=== PATIENT | female | born 1980 | race Caucasian/White ===

== ENCOUNTER → 2017-05-01 | Outpatient (REF) | payer BC, OTHER ==
[2017-05-01 21:07] LABS: APPEARANCE, URINE CLOUDY (CLEAR); BACTERIA, URINE AUTO NEGATIVE (NEGATIVE); BILIRUBIN, URINE AUTO NEGATIVE (NEGATIVE); BLOOD, URINE BLOOD 2+ (NEGATIVE); COLOR, URINE YELLOW (YELLOW); GLUCOSE, URINE (UA) AUTO NEGATIVE (NEGATIVE); KETONE, URINE AUTO NEGATIVE (NEGATIVE); LEUKOCYTE ESTERASE, URINE AUTO 3+ (NEGATIVE); MUCUS, URINE SMALL (NEGATIVE); NITRITE, URINE AUTO NEGATIVE (NEGATIVE); PROTEIN, URINE AUTO NEGATIVE (NEGATIVE); RBC, URINE AUTO 5 /HPF (0-3); SPECIFIC GRAVITY URINE AUTO 1.005 (1.002-1.035); SQUAMOUS EPITHELIAL CELL UR AU 6 /HPF (0-6); TRANSITIONAL EPITHELIAL AUTO <1 /HPF; UROBILINOGEN, URINE AUTO 0.2 mg/dL (0.0-2.0); WBC, URINE AUTO 163 /HPF (0-3)
== END ==
LOC: M LAB REF 20:14
DX: N39.0 Urinary tract infection, site not specified (principal)

== ENCOUNTER 2017-09-19 03:38 | Inpatient (IN) | payer OTHER, BC ==
[2017-09-19] MEDS ORDERED: MAALOX 30 ML SUSP *UDC PO (04:15)
[2017-09-19] MEDS ORDERED: MOM 30ML SUSPENSION UDC PO (04:15)
[2017-09-19 05:37] LABS: SALICYLATE LEVEL < 1.7 MG/DL (5.0-30.0)
[2017-09-19 05:44] LABS: ACETAMINOPHEN LEVEL < 2.0 UG/ML (10.0-30.0)
[2017-09-19] MEDS: PALIPERIDONE 6 MG ER TAB (INVEGA) PO ×2 (09:00→20:05)
[2017-09-19] MEDS: ACETAMINOPHEN TAB 650MG DOSE (2X325MG) PO (18:13)
[2017-09-19] MEDS: QUEtiapine FUMARATE 25 MG TAB PO (20:05)
[2017-09-19] MEDS: lamoTRIgine 25 MG TAB PO (20:05)
[2017-09-19] MEDS: traZODone 50 MG TAB PO (20:05)
[2017-09-19] MEDS: clonazePAM 1 MG TAB PO (20:48)
[2017-09-20] MEDS: clonazePAM 1 MG TAB PO ×2 (08:17→20:48)
[2017-09-20] MEDS: lamoTRIgine 25 MG TAB PO ×2 (08:17→20:48)
[2017-09-20] MEDS: PALIPERIDONE 3 MG ER TAB (INVEGA) PO ×2 (11:47→20:49)
[2017-09-20] MEDS: QUEtiapine FUMARATE 25 MG TAB PO (20:49)
[2017-09-21] MEDS: lamoTRIgine 25 MG TAB PO ×2 (08:51→20:33)
[2017-09-21] MEDS: PALIPERIDONE 3 MG ER TAB (INVEGA) PO ×2 (08:51→20:35)
[2017-09-21] MEDS: clonazePAM 1 MG TAB PO ×2 (09:00→12:51)
[2017-09-21] MEDS: PALIPERIDONE PALMITATE 156 MG/1ML INJ(INVEGA SUSTENNA)(J2426) IM (11:00)
[2017-09-21] MEDS: QUEtiapine FUMARATE 25 MG TAB PO (20:32)
[2017-09-22] MEDS: lamoTRIgine 25 MG TAB PO (08:15)
[2017-09-22] MEDS: PALIPERIDONE 3 MG ER TAB (INVEGA) PO (08:16)
== END 2017-09-22 11:40 | disposition home or self-care (01) | DRG 750 ==
LOC: M ED 03:38 → M ED INP 04:14 → M PSY 10:55
PROVIDERS: Psychiatry & Neurology Psychiatry
DX: F25.9 Schizoaffective disorder, unspecified (principal); R45.851 Suicidal ideations; Z88.2 Allergy status to sulfonamides; Z91.018 Allergy to other foods; Z79.899 Other long term (current) drug therapy; F41.0 Panic disorder [episodic paroxysmal anxiety]

== ENCOUNTER 2020-03-20 20:47 | Emergency (ER) | payer OTHER ==
[~2020-03-20] VITALS: Ht 167.6 cm; Wt 82.0 kg
[~2020-03-20 20:47] MED LIST: CLON1TAB8 PO; LAMI25TA PO; LAMO150T3; LAMO150T3 PO; PALI1TAB2 PO; QUET1TAB7 PO; SERO1TAB; SERO1TAB PO
[2020-03-20] MEDS ORDERED: SUMA25TA3 (21:02)
[2020-03-20] MEDS ORDERED: VRAY3CAP (21:02)
--- OUTSIDE RECORDS SUMMARY | 2020-03-20 21:02 | CCD | Continuity of Care Document ---
Author Author [facility] Address [address] [place] [address] Phone Support Name Relationship Address Phone Darvin Watt PRS [address] [place] [address] Mayank Mcdowell PRS [address] [place] [address] Scottie Dickson PRS [address] [place] [address] Chan Douglas PRS [address] [place] [address] [place] [address] [place] [address] [place] [address] Lisset Baptiste PRS [address] [place] [address] Allergies, Adverse Reactions, Alerts Allergen Type Severity Reaction Last Updated Verified Status Sulfa (Sulfonamide Antibiotics) Allergy Mild March 06, 2020 4:07pm Yes Active pineapple Allergy Unknown March 06, 2020 4:07pm Yes Active risperidone Adverse Reaction Moderate upward and right lateral deviation of eyes March 06, 2020 4:07pm Yes Active Medications Medication Status Dose Units Route Directions Qty Days Start Date End Date Instructions Quetiapine (Seroquel) 100 mg tablet Discontinued 200 MG PO Once Per Day 60 July 25, 2018 11:13am March 13, 2019 5:30pm Clonazepam (Klonopin) 1 mg tablet Active 0.5 MG PO daily June 06, 2019 8:5 2am Norgestimate-Ethinyl Estradiol (Sprintec (28)) 0.25-35 mg-mcg tablet Discontinued 1 TAB PO daily September 25, 2019 12:47pm February 4:21pm Afluria Qd (3yr up)(PF) (flu vac [id number] 36mos up(PF)) Discontinued 60 MCG IM 1 Time/Once 0.5 December 14, 2019 8:38am December 9:08am Brexpiprazole (Rexulti) 1 mg tablet Discontinued 1 MG PO da ade January 19, 2020 3:23pm March 06, 2020 4:21pm Mupirocin Discontinued 1 APPLIC TOP 2 Times Per Day January 19, 2020 3:44pm March 06, 2020 4:21pm Sumatriptan Succinate (Imitrex) 50 mg tablet Discontinued 50 MG PO Q 2H February 15, 2020 2:06pm March 06, 2020 4:21pm do not exceed 4 doses per 24 hrs Quetiapine (Seroquel) 100 mg tablet Active 100 MG PO At Bedtime February 15, 2020 2:16pm Quetiapine (Seroquel) 100 mg tablet Discontinued 300 MG PO Once Per Day March 13, 2019 5:30pm February 15, 2020 2:24pm Desogestrel-Ethinyl Estradiol (Enskyce) 0.15-0.03 mg t ablet Discontinued TAB Asher 2019 5:30pm September 25, 2019 12:47pm Nitrofurantoin Monohyd/M-Cryst (Macrobid) 100 mg capsu le Discontinued 100 MG PO 2 Times Per Day March 13, 2019 10:17pm May 8:52am must administer with a meal/food Clonazepam Active 1 MG PO Once Per Day March 06, 2020 4:12pm Cariprazine (Vraylar) 1.5 mg capsule Activ e 1.5 MG PO Once Per Day March 06, 2020 4:12pm Lamotrigine Discontinued 150 MG PO Once Per Day April 16, 2014 3:49pm April 16, 2014 4:27pm take one-half tab. po BID Desogestrel-Ethinyl Estradiol (Emoquette 28 Day Tablet) 1 EACH tablet Discontinued 1 TAB PO Once Per Day April 16, 2014 3:49pm September 25, 2014 2:12pm Lamotrigine Discontinued 150 MG PO Once Per Day April 16, 2014 4:27pm September 23, 2015 3:41pm take one-half tab. po BID Clonazepam (Klonopin) 1 MG tablet Di scontinued 1 MG PO On ce Per Day September 25, 2014 2:2 2pm September 23, 2015 3:39pm 1/2 a pill BI D Haloperidol Discontinued 1 MG PO 2 Times Per Day AF TER Meals September 25, 2014 2:2 2pm September 23, 2015 3:41pm take 1 and 1/ 2 po BID Quetiapine (Seroquel) 50 MG tablet D iscontinued 50 MG PO O nce Per Day September 25, 2014 2:2 5pm September 23, 2015 3:39pm Clonazepam (Klonopin) 1 MG tablet Di scontinued 0.5 MG PO 2 Times Per Day September 23, 2015 3:39pm September 24, 2015 5:41pm 1/2 a pill BI D Quetiapine (Seroquel) 100 MG tablet Discontinued 100 MG PO 1/2 at HS September 23, 2015 3:3 9pm September 24, 2015 5:41pm Lamotrigine Discontinued 150 MG PO Once Per Day September 23, 2015 3:41pm September 24, 2015 5:41pm take one-half tab. po BID Haloperidol Discontinued 1 MG PO 2 Times Per Day AF TER Meals 60 September 23, 2015 3:4 1pm September 24, 2015 5:41pm 1 po bid Lamotrigine Discontinued 150 MG PO Once Per Day September 24, 2015 5:41pm March 17, 2016 10:18am take one-half tab. po BID Clonazepam (Klonopin) 1 MG tablet Di scontinued 0.5 MG PO 2 Times Per Day September 24, 2015 5:41pm October 24, 2015 3:16pm 1/2 a pill BID Haloperidol Discontinued 1 MG PO 2 Times Per Day AF TER Meals 60 September 24, 2015 5:4 1pm March 17, 2016 10:18am 1 po bid Quetiapine (Seroquel) 100 MG tablet Discontinued 100 MG PO 1/2 at HS September 24, 2015 5:4 1pm March 17, 2016 10:18am Clonazepam (Klonopin) 1 MG tablet Di scontinued 0.5 MG PO 2 Times Per Day October 24, 2015 3:16pm March 17, 2016 10:18am 1/2 a pil l BID Code A Lamotrigine Discontinued 150 MG PO Once Per Day March 17, 2016 10:18am August 11, 2016 9:32am take one-half tab. po BID Haloperidol Discontinued 1 MG PO 2 Times Per Day AF TER Meals 60 March 17, 2016 10:18am August 11, 2016 9:32am 1 po bid Quetiapine (Seroquel) 100 MG tablet Discontinued 100 MG PO 1/2 at HS 15 March 17, 2016 10:18am August 11, 2016 9:32am Clonazepam (Klonopin) 1 MG tablet Di scontinued 0.5 MG PO 2 Times Per Day March 17, 2016 10:19am August 11, 2016 9:32am 1/2 a pill BID Code A Lamotrigine Discontinued 150 MG PO Once Per Day August 11, 2016 9:32am March 30, 2017 4:31pm take one-half tab. po BID Haloperidol Discontinued 1 MG PO 2 Times Per Day AF TER Meals 60 August 11, 2016 9:32 am March 30, 2017 4:31pm 1 po bid Quetiapine (Seroquel) 100 MG tablet Discontinued 100 MG PO 1/2 at HS 15 August 11, 2016 9:32 am March 30, 2017 4:31pm Clonazepam (Klonopin) 1 MG tablet Di scontinued 0.5 MG PO 2 Times Per Day August 11, 2016 9:33am September 18, 2017 9:06pm 1/2 a pill BI D Code A Lamotrigine Discontinued 150 MG PO Once Per Day March 30, 2017 4:31pm July 29, 2017 12:10pm take one-half tab. po BID Quetiapine (Seroquel) 100 MG tablet Discontinued 100 MG PO 1/2 at HS 15 March 30, 2017 4:31pm June 30, 2017 9:36am Haloperidol Lactate Discontinued 2 MG IM Three times a day March 30, 2017 4:31pm May 03, 2017 7:53am Haloperidol Lactate Discontinued 2 MG IM Three times a day May 03, 2017 7:53am June 01, 2017 3:13pm Haloperidol Discontinued 2 MG PO Three times a day May 03, 2017 8:33am June 01, 2017 3:13pm Quetiapine (Seroquel) 100 MG tablet Discontinued 100 MG PO Once Per Day June 30, 2017 9:36am July 29, 2017 12:10pm Lamotrigine Discontinued 150 MG PO Once Per Day July 29, 2017 12:10pm October 18, 2017 8:59am take one-half tab. po BID Quetiapine (Seroquel) 100 MG tablet Discontinued 100 MG PO Once Per Day July 29, 2017 12:10pm October 18, 2017 8:59am Paliperidone Discontinued 3 MG PO 2 Times Per Day October 11, 2017 3:38pm October 11, 2017 3:58pm Clonazepam Discontinued 1 MG PO 2 Times Per Day October 11, 2017 3:38pm December 28, 2017 10:54am Risperidone Discontinued 0.5 MG PO 2 Times Per Day 60 October 11, 2017 3:58pm October 26, 2017 7:20am Lamotrigine Discontinued 150 MG PO Once Per Day October 18, 2017 8:59am November 04, 2017 1:40pm take one-half tab. po BID Quetiapine (Seroquel) 100 MG tablet Discontinued 100 MG PO Once Per Day October 18, 2017 8:59am December 28, 2017 10:54am Lamotrigine Discontinued 75 MG PO 2 Times Per Day 180 November 04, 2017 1:40pm April 26, 2018 11:15am Quetiapine (Seroquel) 100 MG tablet Discontinued 200 MG PO Once Per Day 60 December 28, 2017 10:54am April 26, 2018 11:33am Clonazepam Discontinued 1 MG PO 2 Times Per Day 30 December 28, 2017 10:55am April 26, 2018 11:33am Quetiapine (Seroquel) 100 MG tablet Discontinued 200 MG PO Once Per Day 60 April 26, 2018 11:33am July 06, 2018 9:41am Quetiapine (Seroquel) 100 MG tablet Discontinued 200 MG PO Once Per Day 60 April 26, 2018 11:33am July 11, 2018 3:01pm Clonazepam Discontinued 1 MG PO 2 Times Per Day 30 April 26, 2018 11:34am September 25, 2019 12:47pm Quetiapine (Seroquel) 100 mg tablet Discontinued 200 MG PO Once Per Day 60 July 11, 2018 3:01p m July 25, 2018 11:13am Problems Active Problems Medical Problem Onset Date Status Schizoaffective disorder, depressive type June 30, 2017 Active Schizoaffective disorder, depressive type Active Encounter for immunization Active Polycystic ovaries September 25, 2014 Active Dizziness Active Thyroiditis Active Depression Active Panic disorder October 24, 2015 Active Neck pain of over 3 months duration Active Schizoaffective disorder Active TSH elevation Active Inactive/Resolved Problems Medical Problem Onset Date Status Suicide ideation Resol bolivar Procedures Procedure Date Performed Status Urine Culture March 06, 2020 active Urine Culture February 15, [address] Abd/pel w/ contrast March 13, 2019 5:03pm completed Blood Culture March 13, 2019 completed Urine Culture March 13, 2019 completed Relevant Diagnostic Tests and/or Laboratory Data Laboratory Results Test Date/Time Result Interpretation Reference Range Result Comment Performing Site White Blood Count November 02, 2019 10:18a m 9.2 10e3/uL 4.45-10.71 [facility], [address] [place] [address] 11169 White Blood Count March 13, 2019 5:20pm 9.6 10e3/uL 4.45-10.71 [facility], [address] [place] [address] 01995 Red Blood Count November 02, 2019 10:18am 4.37 10e6/uL 4.20-5.40 [facility], [address] [place] [address] 61469 Red Blood Count March 13, 2019 5:20pm 4.65 10e6/uL 4.20-5.40 [facility], [address] [place] [address] 69262 Hemoglobin November 02, 2019 10:18am 12.9 g/dL 10.7-15.4 [facility], [address] [place] [address] 05351 Hemoglobin March 13, 2019 5:20pm 13.6 g/dL 10.7-15.4 [facility], [address] [place] [address] 61482 Hematocrit November 02, 2019 10:18am 38.2 % 37-47 [facility], [address] [place] [address] 54801 Hematocrit March 13, 2019 5:20pm 40.9 % 37-47 [facility], [address] [place] [address] 96410 Mean Corpuscular Volume November 02, 2019 10:18am 87.[address] [facility], [address] [place] [address] 13069 Mean Corpuscular Volume March 13, 2019 5:20pm 88.0 fl 80-96 [facility], [address] [place] [address] 11213 Mean Corpuscular Hemoglobin October 072019 10:18am 29.5 pg 27-31 [facility], [address] [place] [address] Mean Corpuscular Hemoglobin March 13, 2019 5:20pm 29.2 pg 27-31 [facility], [address] [place] [address] 01230 Mean Corpuscular Hemoglobin Concent November 02, 2019 10:18am 33.8 g/dl -37 [facility], [address] [place] [address] 18846 Mean Corpuscular Hemoglobin Concent March 13, 2019 5:20pm 33.3 g/dl [address] [place] [address] [facility]ORATORY, [address] [place] [address] 49430 Red Cell Distribution Width October 072019 10:18am 13 % 11-15 [facility], [address] [place] [address] Red Cell Distribution Width March 13, 2019 5:20pm 13 % 11-15 [facility], [address] [place] [address] 26550 Platelet Count November 02, 2019 10:18am 288 10e3/ul 130-472 [facility], [address] [place] [address] Platelet Count March 13, 2019 5:20pm 349 10e3/ul 130-472 [facility], [address] [place] [address] Mean Platelet Volume November 01 10:18am 10.0 fl 9.1-13.1 [facility], [address] [place] [address] Mean Platelet Volume March 13 5:20pm 9.6 fl 9.1-13.1 [facility], [address] [place] [address] Neutrophils (%) (Auto) November 02, 2019 10:18am 46.3 % [address] [place] [address] LABORATORY, [address] [place] [address] 28909 Neutrophils (%) (Auto) March 13, 2019 5:20pm 58.6 % [address] [facility], [address] [place] [address] 45445 Absolute Neutrophil November 01 0 10:18am 4.3 # 1.7-7.6 [facility], [address] [place] [address] 06811 Absolute Neutrophil March 13 0 5:20pm 5.6 # 1.7-7.6 [facility], [address] [place] [address] 86745 Lymphocytes (%) (Auto) November 02, 2019 10:18am 41.6 % 14-46 [facility], [address] [place] [address] 87036 Lymphocytes (%) (Auto) March 13, 2019 5:20pm 30.9 % 14-46 [facility], [address] [place] [address] 42376 Lymphocytes # (Auto) November 01 10:18am 3.8 # 0.6-4.6 [facility], [address] [place] [address] Lymphocytes # (Auto) March 13 5:20pm 3.0 # 0.6-4.6 [facility], [address] [place] [address] 50230 Monocytes (%) (Auto) November 01 10:18am 9.1 % 4-12 [facility], [address] [place] [address] 79531 Monocytes (%) (Auto) March 13 5:20pm 8.0 % 4-12 [facility], [address] [place] [address] 84933 Monocytes # November 02, 2019 10:18am 0.8 # 0.2-1.2 [facility], [address] [place] [address] 54187 Monocytes # March 13, 2019 5:20pm 0.8 # 0.2-1.2 [facility], [address] [place] [address] 91080 Eosinophils (%) (Auto) November 02, 2019 10:18am 2.4 % 0-7 [facility], [address] [place] [address] 70339 Eosinophils (%) (Auto) March 13, 2019 5:20pm 2.0 % 0-7 [facility], [address] [place] [address] 29105 Absolute Eosinophils (CBC) November 012019 10:18am 0.2 # 0.0-0.5 [facility], [address] [place] [address] 72785 Absolute Eosinophils (CBC) March 132019 5:20pm 0.2 # 0.0-0.5 [facility], [address] [place] [address] 92954 Basophils (%) (Auto) November 01 10:18am 0.4 % 0.4-1.3 [facility], [address] [place] [address] 74454 Basophils (%) (Auto) March 13 5:20pm 0.4 % 0.4-1.3 [facility], [address] [place] [address] 01033 Absolute Basophils (CBC) October 10:18am 0.0 # 0.0-0.2 [facility], [address] [place] [address] Absolute Basophils (CBC) March 5:20pm 0.0 # 0.0-0.2 [facility], [address] [place] [address] 90200 Immature Granulocyte % (Auto) November 02, 2019 10:18am 0.2 % 0-2 [facility], [address] [place] [address] 80634 Immature Granulocyte % (Auto) 2019 5:20pm 0.1 % 0-2 [facility], [address] [place] [address] 18864 Absolute Immature Granulocyte (auto November 02, 2019 10:18am 0.0 # 0-0.1 [facility], [address] [place] [address] 68026 Absolute Immature Granulocyte (auto March 13, 2019 5:20pm 0.0 # 0-0.1 [facility], [address] [place] [address] 43487 Add Manual Differential November 02, 2019 10:18am No [facility], [address] [place] [address] 98634 Add Manual Differential March 13, 2019 5:20pm No [facility], [address] [place] [address] 24873 Urine Color March 06, 2020 5:16pm Yellow [facility], [address] [place] [address] Urine Color February 15, 2020 2:00pm Yellow [facility], [address] [place] [address] 24384 Urine Color March 13, 2019 5:40pm Yellow [facility], [address] [place] [address] Urine Appearance March 06, 2020 5:16p m Clear CLEAR [facility], [address] [place] [address] 25808 Urine Appearance February 15, 2020 2:00p m Clear CLEAR [facility], [address] [place] [address] 18396 Urine Appearance March 13, 2019 5:40pm Clear CLEAR [facility], [address] [place] [address] 32091 Urine pH March 06, 2020 5:16pm 6.5 [facility], [address] [place] [address] 42076 Urine pH February 15, 2020 2:00pm 5.5 [facility], [address] [place] [address] 51890 Urine pH March 13, 2019 5:40pm 8.0 [facility], [address] [place] [address] 75451 Urine Specific Dustin February 5:16pm 1.009 [facility], [address] [place] [address] Urine Specific Dustin February 2:00pm 1.012 [facility], [address] [place] [address] Urine Specific Dustin March 13, 2019 5:40pm 1.009 [facility], [address] [place] [address] 43999 Urine Leukocyte Esterase March 062019 5:16pm Large NEGATIVE A Culture has been added to this specimen per established criteria [facility], [address] [place] [address] Urine Leukocyte Esterase February 142019 2:00pm Small NEGATIVE A Culture has been added to this specimen per established criteria [facility], [address] [place] [address] 94234 Urine Leukocyte Esterase March 5:40pm Small NEGATIVE A Culture has been added to this specimen per established criteria [facility], [address] [place] [address] 26364 Urine Nitrate March 06, 2020 5:16pm Negative NEGATIVE [facility], [address] [place] [address] 67202 Urine Nitrate February 15, 2020 2:00pm Negative NEGATIVE [facility], [address] [place] [address] 10601 Urine Nitrate March 13, 2019 5:40pm Negative NEGATIVE [facility], [address] [place] [address] 82996 Urine Protein March 06, 2020 5:16pm Negative NEGATIVE [facility], [address] [place] [address] 01806 Urine Protein February 15, 2020 2:00pm Negative NEGATIVE [facility], [address] [place] [address] 07313 Urine Protein March 13, 2019 5:40pm Negative NEGATIVE [facility], [address] [place] [address] 50994 Urine Glucose March 06, 2020 5:16pm Negative NEGATIVE [facility], [address] [place] [address] 87383 Urine Glucose February 15, 2020 2:00pm Negative NEGATIVE [facility], [address] [place] [address] 29506 Urine Glucose March 13, 2019 5:40pm Negative NEGATIVE [facility], [address] [place] [address] 20275 Urine Ketones March 06, 2020 5:16pm Negative NEGATIVE [facility], [address] [place] [address] 17815 Urine Ketones February 15, 2020 2:00pm Negative NEGATIVE [facility], [address] [place] [address] 12431 Urine Ketones March 13, 2019 5:40pm Negative NEGATIVE [facility], [address] [place] [address] 02143 Urine Urobilinogen March 06 5:16pm 0.2 eu/dl [facility], [address] [place] [address] Urine Urobilinogen February 14 2:00pm 0.2 eu/dl NORMAL [facility], [address] [place] [address] 20486 Urine Urobilinogen March 13, 2019 5:40p m 0.2 eu/dl [facility], [address] [place] [address] 30433 Urine Bilirubin March 06, 2020 5:16pm Negative NEGATIVE [facility], [address] [place] [address] 06461 Urine Bilirubin February 15, 2020 2:00pm Negative NEGATIVE [facility], [address] [place] [address] 07491 Urine Bilirubin March 13, 2019 5:40pm Negative NEGATIVE [facility], [address] [place] [address] 59441 Urine Blood March 06, 2020 5:16pm Trace NEGATIVE [facility], [address] [place] [address] 06431 Urine Blood February 15, 2020 2:00pm Negative NEGATIVE [facility], [address] [place] [address] 52726 Urine Blood March 13, 2019 5:40pm Negative NEGATIVE [facility], [address] [place] [address] 31628 Add Urine Microanalysis February 5:16pm Microscopic added [facility], [address] [place] [address] Add Urine Microanalysis February 2:00pm Microscopic added [facility], [address] [place] [address] Add Urine Microanalysis March 13, 2019 5:40pm Microscopic added [facility], [address] [place] [address] Urine RBC March 06, 2020 5:16pm 3-5 /hpf [facility], [address] [place] [address] Urine WBC March 06, 2020 5:16pm 3-5 /hpf [facility], [address] [place] [address] Urine WBC February 15, 2020 2:00pm 8-12 /hpf [facility], [address] [place] [address] Urine WBC March 13, 2019 5:40pm 3-5 /hpf [facility], [address] [place] [address] 85645 Urine Squamous Epithelial Cells Dece 2019 5:16pm Few /hpf [facility], [address] [place] [address] Urine Squamous Epithelial Cells Dece 2019 2:00pm Few /hpf [facility], [address] [place] [address] Urine Squamous Epithelial Cells Asher rachel 2019 5:40pm Moderate /hpf [facility], [address] [place] [address] Urine Bacteria March 06, 2020 5:16pm Small amount NEGATIVE [facility], [address] [place] [address] Urine Bacteria February 15, 2020 2:00pm Moderate amount NEGATIVE A Culture has been added to this specime n per established criteria [facility], [address] [place] [address] Urine Bacteria March 13, 2019 5:40pm Small amount NEGATIVE [facility], [address] [place] [address] Blood Urea Nitrogen November 01 0 10:18am 15 mg/dL 11-28 [facility], [address] [place] [address] Blood Urea Nitrogen March 13 0 5:20pm 10 mg/dL 11-28 [facility], [address] [place] [address] Sodium Level November 02, 2019 10:18am 141 mmol/L 132-146 [facility], [address] [place] [address] Sodium Level March 13, 2019 5:20pm 140 mmol/L 132-146 [facility], [address] [place] [address] 07645 Potassium Level November 02, 2019 10:18am 3.7 mmol/L 3.5-5.5 [facility], [address] [place] [address] 07315 Potassium Level March 13, 2019 5:20pm 3.8 mmol/L 3.5-5.5 [facility], [address] [place] [address] 37226 Chloride Level November 02, 2019 10:18am 108 mmol/l 99-109 [facility], [address] [place] [address] 87388 Chloride Level March 13, 2019 5:20pm 105 mmol/l 99-109 [facility], [address] [place] [address] 47992 Carbon Dioxide Level November 01 10:18am 27 mmol/l 20-31 [facility], [address] [place] [address] 36127 Carbon Dioxide Level March 13 5:20pm 30 mmol/l -31 [facility], [address] [place] [address] 60259 Anion Gap November 02, 2019 10:18am 10 mmol/l 8-16 [facility], [address] [place] [address] 49331 Anion Gap March 13, 2019 5:20pm 9 mmol/l 8-16 [facility], [address] [place] [address] 54154 Glucose Level November 02, 2019 10:18am 93 mg/dL 74-106 [facility], [address] [place] [address] 58312 Glucose Level March 13, 2019 5:20pm 86 mg/dL 74-106 [facility], [address] [place] [address] 29197 Creatinine November 02, 2019 10:18am 0.8 mg/dL 0.5-1.1 [facility], [address] [place] [address] 87706 Creatinine March 13, 2019 5:20pm 0.8 mg/dL 0.5-1.1 [facility], [address] [place] [address] 96618 Glomerular Filtration Rate Calc Augu st 2019 10:18am Greater than 60 ml/min ABOVE 60 [facility], [address] [place] [address] Glomerular Filtration Rate Calc Asher rachel 2019 5:20pm Greater than 60 ml/min ABOVE 60 [facility], [address] [place] [address] 34424 Alanine Aminotransferase (ALT/SGPT) November 02, 2019 10:18am 21 U/L 10-49 [facility], [address] [place] [address] 67159 Alanine Aminotransferase (ALT/SGPT) March 13, 2019 5:20pm 21 U/L 10-49 [facility], [address] [place] [address] 19040 Aspartate Amino Transf (AST/SGOT) Au mary kate 2019 10:18am 19 U/L 0-33 [facility], [address] [place] [address] 81136 Aspartate Amino Transf (AST/SGOT) Ja nuary 2019 5:20pm 14 U/L 0-33 [facility], [address] [place] [address] 06852 Alkaline Phosphatase November 01 10:18am 22 U/L 45-129 [facility], [address] [place] [address] 66816 Alkaline Phosphatase March 13 5:20pm 27 U/L 45-129 [facility], [address] [place] [address] 41590 Amylase Level March 13, 2019 5:20pm 59 U/L 30-118 [facility], [address] [place] [address] 68174 Lipase March 13, 2019 5:20pm 170 U/L 73-393 [facility], [address] [place] [address] 05041 Calcium Level November 02, 2019 10:18am 9.2 mg/dL 8.5-10.1 [facility], [address] [place] [address] 88998 Calcium Level March 13, 2019 5:20pm 9.1 mg/dL 8.5-10.1 [facility], [address] [place] [address] 57780 Total Bilirubin November 02, 2019 10:18am 0.5 mg/dL 0.3-1.2 [facility], [address] [place] [address] 91390 Total Bilirubin March 13, 2019 5:20pm 0.3 mg/dL 0.3-1.2 [facility], [address] [place] [address] 21400 Albumin November 02, 2019 10:18am 3.5 g/dL 3.2-4.8 [facility], [address] [place] [address] 60325 Albumin March 13, 2019 5:20pm 3.7 g/dL 3.2-4.8 [facility], [address] [place] [id number] Serum Total Protein November 01 0 10:18am 6.8 g/dL 5.7-8.2 [facility], [address] [place] [address] [id number] Serum Total Protein March 13 0 5:20pm 8.1 g/dL 5.7-8.2 [facility], [address] [place] [address] 80239 Lactic Acid Level March 13, 2019 5:20pm 0.7 mmol/L 0.5-2.2 [facility], [address] [place] [address] 86044 Triglycerides Level November 01 0 10:18am 108 mg/dL 0-150 [facility], [address] [place] [address] 77258 Cholesterol Level November 02, 2019 10:18a m 207 mg/dL 120-200 [facility], [address] [place] [address] 58874 HDL Cholesterol November 02, 2019 10:18am 81 mg/dL HDL Less than 40 mg/dL: Major risk for CHDHDL Greater than 59 mg/dL: Low risk for CHD [facility], [address] [place] [address] 00837 LDL Cholesterol, Calculated October 072019 10:18am 105 mg/dL 0-100 [facility], [address] [place] [address] 79979 Urine Marijuana (THC) Screen 2019 5:16pm Negative ng/mL Cutoff 50 [facility], [address] [place] [address] Urine Phencyclidine Screen March 06, 2020 5:16pm Negative ng/mL Cutoff 25 [facility], [address] [place] [address] 44773 Urine Cocaine Screen March 06, 2020 5:16pm Negative ng/mL Cutoff 150 [facility], [address] [place] [address] 36056 Urine Methamphetamines Screen 2019 5:16pm Negative ng/mL Cutoff 500 [facility], [address] [place] [address] Urine Opiates Screen March 06, 2020 5:16pm Negative ng/mL Cutoff 100 [facility], [address] [place] [address] 31486 Urine Amphetamines Screen February 072019 5:16pm Negative ng/mL Cutoff 500 [facility], [address] [place] [address] 27685 Urine Benzodiazepines Screen Decembe 2019 5:16pm Negative ng/mL Cutoff 150 [facility], [address] [place] [address] Ur Tricyclic Antidepressants Screen March 06, 2020 5:16pm Presumptive positive ng/mL Cutoff 300 This test is for scre ening purposes only. Confirmation of positive results will be sent to our Reference lab only at the Physician's request. [facility], [address] [place] [address] 07461 Urine Methadone Screen February 5:16pm Negative ng/mL Cutoff 200 [facility], [address] [place], [place] [id number] Urine Barbiturates March 06 5:16pm Negative ng/mL Cutoff 200 [facility], [address] [place], [place] [id number] Urine Oxycodone Screen February 5:16pm Negative ng/mL Cutoff 100 [facility], [address] [place], [place] [id number] Urine Propoxyphene Screen February 072019 5:16pm Negative ng/mL Cutoff 300 [facility], [address] [place], [place] [id number] Urine Buprenorphine Screen March 06, 2020 5:16pm Negative ng/mL Cutoff 10 [facility], [address] [place], [place] [id number] Thyroid Stimulating Hormone (TSH) Au 2019 10:18am 6.17 uIU/mL 0.35-5.50 [facility], [address] [place] [address] 29850 Serum Test, Qualitative [facility] 2019 5:20pm Negative NEGATIVE [facility], [address] [place] [address] Insulin Level November 02, 2019 10:18am 3.6 uIU/mL Reference Range < or = 19.6 Risk: Optimal < or = 19.6 Moderate NA High >19.6 Adult cardiovascular event risk category cut points (optimal, moderate, high) are based on [employer] population data from 02/2011.This insulin assay shows strong cross- reactivity forsome insulin analogs (lispro, aspart, and glargine)and much lower cross-reactivity with others (detemir,glulisine).THIS TEST WAS PERFORMED AT:[facility] [id number] MERATI,MD [facility] Hemoglobin A1c November 02, 2019 10:18am 5.5 % 4.0-6.0 The following ranges may be used for interpretation of results: HGBA1C degree of glucose control: Greater than 8%: Action Suggested * Less than 7%: Goal of Diabetic Therapy Less than 6%: Normal Factors such as duration of diabetes, adherence to therapyand the age of the patient should also be considered inassessing the degree of blood glucose control. * High risk of developing long wall mining machine helper complications such asretinopathy, nephropathy, neuropathy, cardiopathy, etc. Some danger of hypoglycemic reaction in Type I diabetics.Some glucose intolerant individuals and "Sub Clinical"diabetics may demonstrate HGBA1C levels in this area. [facility], [address] [place] [address] Estimated Average Glucose (eAG) Augu 2019 10:18am 111 mg/dl An A1C of 7% - the goal of diabetic ther apy - is equivalentto an EAG of 154 mg/dl. [facility], [address] [place] [address] Microbiology Results Procedure Source Result Collection Date/Time Result Date/Time Result Comment Performing Site Urine Culture Urine,voided February 15, 2020 2:00pm February 17, 2020 7:38am [facility], [address] [place] [address] Urine Culture Urine,voided March 13, 2019 5:40pm March 3:58pm [facility], [address] [place] [address] Blood Culture Venous blood No growth. March 13, 2019 5:20pm March 5:20pm [facility], [address] [place] [address] Diagnostic Imaging Reports Report Dictated Date/Time Dictated By Status Radiology Report March 13, 2019 6:34pm Osito Medrano MD completed [address] [place] [address] [phone] NAME SEX PT STATUS ACCOUNT NUMBER Yvonne Park [facility] ER [id number] ORDERING PHYSICIAN LOCATION MEDICAL RECORD NO. Scottie Dickson MD ER [id number] ATTENDING PHYSICIAN DATE OF DATE OF EXAM/TIME Darvin Watt MD 1980 03/13/191702 TYPE / EXAM CT Abd/pel w/ contrast REASON FOR EXAM lower abdominal pain with guarding Clinical History/Indication for Exam: lower abdominal pain with guarding CT abdomen and pelvis with contrast COMPARISON: There are no prior examinations for comparison TECHNIQUE: Multiple axial along with coronal and sagittal reformatted images were obtained following the administration of IV contrast FINDINGS: Lung bases/thorax: No pleural or pericardial effusion. The lung bases are clear. Stomach: Unremarkable. Liver: Unremarkable. There is no focal mass or intrahepatic ductal dilatation. Gallbladder: Unremarkable. There are no gallstones identified. There is no pericystic fluid identified. The gallbladder is not distended. Spleen: Unremarkable. Adrenal glands: Unremarkable. Pancreas: Unremarkable. Kidneys/ureters: Unremarkable. There is no focal mass or hydronephrosis. Bladder: Unremarkable Aorta, inferior vena cava, and vascular structures: Unremarkable. Lymph nodes: There is no significant lymphadenopathy. Bowel: No evidence of bowel obstruction. The appendix is well- visualized, air-filled, and without secondary signs of appendicitis. The remainder of the bowel is unremarkable with no evidence of inflammatory changes. Osseous structures: There are no lytic or blastic lesions visualized within the osseous structures. Reproductive organs: Unremarkable. Other: There is no intra-abdominal free air present. There is no free fluid in the pelvis. IMPRESSION:1. No evidence for acute inflammatory process within the abdomen or pelvis. 2. A normal appendix is visualized within the right lower quadrant. 3. There is no bowel obstruction. Automatic exposure control was used as a dose lowering technique. Contrast Type: isovue 300. Contrast Volume: 100cc REPORT SIGNATURE ON FILE 03/13/2019 (18:34 [place] Time ) Signed by: Osito Medrano M.D. Reported By Osito Medrano MD on 03/13/191833 Signed By Osito Medrano MD on 03/13/191833 Date Time CC: Darvin Watt MD; Osito Medrano MD Techn: MARIE Trans Dt/Tm: 03/13/192003 Trans by: FRANK Prt Dt/Tm: 2076-4834: Total DLP = 920.00 mGy-cm 7590-9690: Total Radiation Dose = 13.8000 mSv Lifetime Dose: 13.8000 mS v Health Concerns Health Concerns may be documented in an alternate section. Advance Directives Advance Directive Response Recorded Date/Time Advanced Directive No De cember 2019 3:55pm Does Patient have a DNR? No March 06, 2020 3:55pm Healthcare Proxy No Dece mber 2019 3:55pm Living Will No February 09, 2020 11:28am Chief Complaint and Reason for Visit Chief Complaint ABDOMINAL PAIN Anxiety Finger Pain/injury Encounter to Establish Care R63.5,E66.9,Z13.1,Z13.220 Test result Injection Skin complaints Headache Follow-up PSYCH EVALUATION Reason for Visit Dizziness Panic disorder Panic disorder Schizoaffective disorder, depressive type TSH elevation Schizoaffective disorder, depressive type Encounter for immunization Thyroiditis Encounters Encounter Location(s) Ar rival/Admit Date Discharge/Depart Date Provider(s) Departed Emergency [facility] ER March 13, 2019 4:58pm March 13, 2019 10:50pm null Departed Physician/Provider Office Visit [facility] March 14, 2019 10:01am March 14, 2019 11:02am Chan Douglas MD Departed Physician/Provider Office Visit [facility] June 06, 2019 8:20am June 06, 2019 9:04am Chan Douglas MD Departed Physician/Provider Office Visit [facility] September 25, 2019 12:42pm September 25, 2019 1:47pm Scottie Aguillon DO Registered Referred [facility] November 02, 2019 9:54am Scottie Aguillon DO Departed Physician/Provider Office Visit [facility] November 17, 2019 12:31pm November 17, 2019 1:04pm Scottie Aguillon DO Departed Physician/Provider Office Visit [facility] December 14, 2019 8:38am December 14, 2019 8:53am Ramona judge NP Departed Physician/Provider Office Visit [facility] January 19, 2020 2:41pm January 19, 2020 3:45pm Ramona Kingston NP Departed Physician/Provider Office Visit [facility] February 15, 2020 1:40pm February 15, 2020 2:26pm Scottie marley DO Registered Referred [facility]Lab Drop Off February 15, 2020 5:44pm Scottie Aguillon DO Departed Emergency [facility] ER March 06, 2020 3:44pm March 06, 2020 8:43pm null Recent Diagnosis Onset Date Dizziness Panic disorder October 24, 2015 Panic disorder October 24, 2015 Schizoaffective disorder, depressive type June 30, 2017 TSH elevation Schizoaffective disorder, depressive type Encounter for immunization Thyroiditis Assessments Diagnosis Onset Date Res olution Status Dizziness acute Panic disorder October 24, 2015 acute Panic disorder October 24, 2015 acute Schizoaffective disorder, depressive type June 30, 2017 acute TSH elevation acute Schizoaffective disorder, depressive type chronic Encounter for immunization acute Thyroiditis acute Family History Relationship Condition A ge at Onset Recorded Date/Time Not Specified Migraine headache Unknown Not Specified Alzheimer's disease Unknown Not Specified Alcoholism Unknown Functional Status No Functional Status information available Goals Goals may be documented in an alternate section. Immunizations Immunization Event Date Not Given Reason Dose Number Commercial Service Technician Lot Number Vaccine Information Statement (VIS) Deta il influenza, injectable, quadriv Octob er 2018 influenza vaccine, inactivated Octob er 2019 [id number] Mental Status Observation Response Isidro e Recorded Impairments No impairments or barriers March 06, 2020 3:45pm Medical Equipment No Medical Equipment Information available Insurance Providers Guarantor YVONNE PARK Address [address] [address] Contact Info. Home Phone: Payer Policy Id Coverage Id Subscriber's Name Subscriber Id Effective Date Expiration Date [facility] [id number] YVONNE PARK [id number] [facility] [id number] YVONNE PARK [id number] 2018 Self Pay Self N/A Plan of Treatment Chronic Tension Headaches turning to migraines occasionally. If she knows it is getting bad that is the time to take the Imitrex. Thryoiditis. Repeat TSH. f/u 6 months. Schizoaffective Disorder followed by [facility] TRANSCRIPTER June. sebaceous cyst debrieded and pt educated on use of muporicin ointment. discusse d dosing/administration/side effects. encouraged skin care with soap and water. will immunize as per cdc protocol Schizoaffective on Serorquel. She was on keto diet but did not lose weight. Se roquel was likely the cause as it makes the body secrete a lot of insulin. We discussed keto conc epts and she actually had success with it for a while. A1c, insuin stable. Cholesterol with pattern A LDL. This is good. Try Methylated B Complex 6 weeks to see if she feels better with her Mental Health. Thyroiditis. Check TSH, thyroid Ab end of December. Will f/u 9 months. Physical Exam. Contemplate Tdap on f/u. Fasting labs and f/u 4 weeks. She had a vasovagal reaction when laying back for belly exam. After laying down 5 mins she sat up a nd drank a seltzer water and felt fine. I believe it was the anxiety of a belly exam with a new do ctor. Schizoaffective Disorder and Panic Disorder followed by Mental Health TRANSCRIPTER June stephanie. She has been gaining weight she says on Seroquel. Seroquel makes you secrete insulin which m akes you gain weight. If insulin levels or A1c is high I would contemplate a different med. Possibly Lamictal which she was succesfully on and an IUD for control. Chronic Tension Headaches. This may be addressed by Mental Health. Mild paronychia of right thumb which seems to be improving. Continue soaks and a ntibiotic cream. Recheck if persists or worsens. She has some brittleness of her distal nails for the past few months with no sys temic symptoms. She has had this before and this has spontaneously resolved. We will monitor this an d she will follow up if symptoms persist or worsen or if she develops other symptoms. No clear cause. Unlikely allergic reaction to Macrobid. May be mild dehydration but is not orthostatic. No evidence of cardiac or neurological event. Offered transport to ER but she declines. Has agreed to call 911 and go ZEV if worsens. Will go home and push fluids and rest. Recheck if symptoms not improiving over next 24 hours, worse or if not 100 % in 1 week. [address] [place] recheck here. Future Tests Future scheduled test information is unavailable Pending Tests Pending diagnostic test information is unavailable Future Visits Future appointment information is unavailable Referrals to Other Providers Reason for Referral Referral Start Date Provider Provider Conta ct Information Provider Address Darvin Watt MD Work Phone: [phone] [phone] Future Procedures Future procedure information is unavailable Future Medications Future medication information is unavailable Patient Instructions Acute Urinary Retention in Women (ED) Abdominal Pain (ED) Social History Smoking Status Status Date of Observation Never smoker March 06, 2020 6:5 3pm Observation Status Date of Observation Not February 09, 2020 Observation Status Observation Response Isidro e of Response Smoking Status Never smoker March 06, 2020 6:53pm Alcohol Use No March 06, 2020 6:53pm Substance Use No Decee r 2019 6:53pm When did patient quit smoking? NA February 09, 2020 11:28am Assigned Sex Female Vital Signs Vital Reading Result Ref erence Range Collection Date/Time Height 65 [in_i] March 13, 2019 5:03pm Weight 192.00 [lb_av] March 13, 2019 5:03pm Body Temperature 98.8 [degF] 97.6-99.5 March 13, 2019 10:00pm Heart Rate 84 /min 60-100 March 13, 2019 10:00pm Respiratory rate 16 /min 12-24 March 13, 2019 10:00pm Oxygen saturation by Pulse oximetry 99 % 95- 100 March 13, 2019 10:00pm BP Systolic 122 mm[Hg] March 13, 2019 10:00pm BP Diastolic 71 mm[Hg] March 13, 2019 10:00pm Height 65 [in_i] March 14, 2019 10:16am Weight 196.00 [lb_av] March 14, 2019 10:16am Body Temperature 98.6 [degF] 97.6-99.5 March 14, 2019 10:16am Heart Rate 87 /min 60-100 March 14, 2019 10:42am Oxygen saturation by Pulse oximetry 99 % 95- 100 March 14, 2019 10:42am BP Systolic 130 mm[Hg] March 14, 2019 10:42am BP Diastolic 100 mm[Hg] March 14, 2019 10:42am BMI (Body Mass Index) 32.5 kg/m2 March 14, 2019 10:16am Height 65 [in_i] June 06, 2019 9:43am Weight 190.05 [lb_av] June 06, 2019 9:43am Body Temperature 99.5 [degF] 97.6-99.5 June 06, 2019 9:43am Heart Rate 92 /min 60-100 June 06, 2019 9:43am Respiratory rate 20 /min 12-24 June 06, 2019 9:43am Oxygen saturation by Pulse oximetry 97 % 95- 100 June 06, 2019 9:43am BP Systolic 130 mm[Hg] June 06, 2019 9:43am BP Diastolic 78 mm[Hg] June 06, 2019 9:43am BMI (Body Mass Index) 31.6 kg/m2 June 06, 2019 9:43am Height 65 [in_i] September 25, 2019 1:46pm Weight 187.00 [lb_av] September 25, 2019 1:46pm Body Temperature 98.5 [degF] 97.6-99.5 September 25, 2019 1:46pm Heart Rate 108 /min 60-1 September 25, 2019 1:46pm Respiratory rate 18 /min 12-September 25, 2019 1:46pm Oxygen saturation by Pulse oximetry 98 % 95- 100 September 25, 2019 1:46pm BMI (Body Mass Index) 31.1 kg/m2 September 25, 2019 1:46pm Height 65 [in_i] November 17, 2019 1:36pm Weight 190.25 [lb_av] November 17, 2019 1:36pm Body Temperature 98.6 [degF] 97.6-99.5 November 17, 2019 1:36pm Heart Rate 78 /min 60-100 November 17, 2019 1:36pm Respiratory rate 18 /min 12-24 November 17, 2019 1:36pm Oxygen saturation by Pulse oximetry 99 % 95- 100 November 17, 2019 1:36pm BP Systolic 116 mm[Hg] November 17, 2019 1:36pm BP Diastolic 74 mm[Hg] November 17, 2019 1:36pm BMI (Body Mass Index) 31.6 kg/m2 November 17, 2019 1:36pm Body Temperature 98.8 [degF] 97.6-99.5 December 14, 2019 10:05am Height 65 [in_i] January 19, 2020 3:19pm Weight 188.00 [lb_av] January 19, 2020 3:19pm Body Temperature 97.5 [degF] 97.6-99.5 January 19, 2020 3:19pm Heart Rate 83 /min 60-100 January 19, 2020 3:19pm Respiratory rate 18 /min 12-January 19, 2020 3:19pm Oxygen saturation by Pulse oximetry 99 % 95- 100 January 19, 2020 3:19pm BP Systolic 100 mm[Hg] January 19, 2020 3:19pm BP Diastolic 60 mm[Hg] January 19, 2020 3:19pm BMI (Body Mass Index) 31.2 kg/m2 January 19, 2020 3:19pm Height 65 [in_i] February 15, 2020 1:55pm Weight 186.00 [lb_av] February 15, 2020 1:55pm Body Temperature 96.8 [degF] 97.6-99.5 February 15, 2020 1:55pm Heart Rate 84 /min 60-100 February 15, 2020 1:55pm Respiratory rate 18 /min -February 15, 2020 1:55pm Oxygen saturation by Pulse oximetry 98 % 95- 100 February 15, 2020 1:55pm BP Systolic 104 mm[Hg] February 15, 2020 1:55pm BP Diastolic 62 mm[Hg] February 15, 2020 1:55pm BMI (Body Mass Index) 30.9 kg/m2 February 15, 2020 1:55pm Height 66 [in_i] March 06, 2020 4:08pm Weight 185.00 [lb_av] March 06, 2020 4:08pm Body Temperature 99.3 [degF] 97.6-99.5 March 06, 2020 4:04pm Heart Rate 90 /min 60-100 March 06, 2020 4:04pm Respiratory rate 20 /min -March 06, 2020 4:04pm Oxygen saturation by Pulse oximetry 98 % 95- 100 March 06, 2020 4:04pm BP Systolic 129 mm[Hg] March 06, 2020 4:04pm BP Diastolic 76 mm[Hg] March 06, 2020 4:04pm Hospital Discharge Instructions Additional Instructions Call your psychiatrist/counselor tomorrow morning to discuss progress, follow-up , medications. If at any time you feel worse in any way return to ED immediately.
--- OUTSIDE RECORDS SUMMARY | 2020-03-20 21:02 | CCD | Continuity of Care Document ---
Author Author [facility] Address [address] [place] [address] Phone Support Name Relationship Address Phone Darvin Watt PRS [address] [place] [address] Mayank Mcdowell PRS [address] [place] [address] Scottie Dickson PRS [address] [place] [address] Chan Douglas PRS [address] [place] [address] Scottie [place] [address] Scottie [place] [address] [place] [address] Allergies, Adverse Reactions, Alerts Allergen Type Severity Reaction Last Updated Verified Status Sulfa (Sulfonamide Antibiotics) Allergy Mild September 18, 2017 9:06pm Yes Active pineapple Allergy Unknown September 19, 2017 6:03am No Active risperidone Adverse Reaction Moderate upward and right lateral deviation of eyes October 26, 2017 7:19am No Active Medications Medication Status Dose Units Route Directions Qty Days Start Date End Date Instructions Quetiapine (Seroquel) 100 mg tablet Discontinued 200 MG PO Once Per Day 60 July 25, 2018 11:13am March 13, 2019 5:30pm Clonazepam (Klonopin) 1 mg tablet Active 1 MG PO daily June 06, 2019 8:5 2am Norgestimate-Ethinyl Estradiol (Sprintec (28)) 0.25-35 mg-mcg tablet Active 1 TAB PO daily September 25, 2019 12:47pm Afluria Qd (3yr up)(PF) (flu vac [id number] 36mos up(PF)) Discontinued 60 MCG IM 1 Time/Once 0.5 December 14, 2019 8:38am December 9:08am Brexpiprazole (Rexulti) 1 mg tablet Active 1 MG PO daily January 19, 2020 3:23pm Mupirocin Active 1 APPLIC TOP 2 Times Per Day January 19, 2020 3:44pm Sumatriptan Succinate (Imitrex) 50 mg tablet Active 50 MG PO Q 2H February 15, 2020 2:06pm do not exceed 4 doses per 24 hrs Quetiapine (Seroquel) 100 mg tablet Active 100 MG PO At Bedtime February 15, 2020 2:16pm Quetiapine (Seroquel) 100 mg tablet Discontinued 300 MG PO Once Per Day March 13, 2019 5:30pm February 15, 2020 2:24pm Desogestrel-Ethinyl Estradiol (Enskyce) 0.15-0.03 mg t ablet Discontinued TAB Asher rachel 2019 5:30pm September 25, 2019 12:47pm Nitrofurantoin Monohyd/M-Cryst (Macrobid) 100 mg capsu le Discontinued 100 MG PO 2 Times Per Day March 13, 2019 10:17pm May 8:52am must administer with a meal/food Lamotrigine Discontinued 150 MG PO Once Per [...] Per Day AF TER Meals 60 September 25, 2014 2:2 2pm September 23, [...] 100 MG PO 1/2 at HS 15 September 23, 2015 3:3 9pm September 24, [...] 100 MG PO 1/2 at HS 15 September 24, 2015 5:4 1pm March 17, 2016 10:18am Clonazepam (Klonopin) 1 MG tablet Di scontinued 0.5 MG PO 2 Times Per Day 90 October 24, 2015 3:16pm March 17, 2016 [...] Discontinued 150 MG PO Once Per Day 30 August 11, 2016 9:32am March 30, 2017 [...] Discontinued 150 MG PO Once Per Day 30 October 18, 2017 8:59am November 04, 2017 1:40pm take one-half tab. po BID Quetiapine (Seroquel) 100 MG tablet Discontinued 100 MG PO Once Per Day 30 October 18, 2017 8:59am December 28, 2017 [...] pain of over 3 months duration Active TSH elevation Active Inactive/Resolved Problems Medical Problem Onset Date Status Suicide ideation Resol bolivar Procedures Procedure Date Performed Status CT Abd/pel w/ contrast March 13, 2019 5:03pm completed Blood Culture March 13, 2019 completed Urine Culture March 13, 2019 completed Relevant Diagnostic Tests and/or Laboratory Data Laboratory Results Test Date/Time Result Interpretation Reference Range Result Comment Performing Site White Blood Count November 02, 2019 10:18a m 9.2 10e3/uL 4.45-10.71 [facility], [address] [place] [address] 45756 White Blood Count March 13, 2019 5:20pm 9.6 10e3/uL 4.45-10.71 [facility], [address] [place] [address] 51792 White Blood Count February 15 11:00am 7.2 10e3/uL 4.45-10.71 [facility], [address] [place] [address] 93642 Red Blood Count November 02, 2019 10:18am 4.37 10e6/uL 4.20-5.40 [facility], [address] [place] [address] 30280 Red Blood Count March 13, 2019 5:20pm 4.65 10e6/uL 4.20-5.40 [facility], [address] [place] [address] 32046 Red Blood Count February 15, 2019 11:00a m 4.23 10e6/uL 4.20-5.40 [facility], [address] [place] [address] 00873 Hemoglobin November 02, 2019 10:18am 12.9 g/dL 10.7-15.4 [facility], [address] [place] [address] 68403 Hemoglobin March 13, 2019 5:20pm 13.6 g/dL 10.7-15.4 [facility], [address] [place] [address] 88889 Hemoglobin February 15, 2019 11:00am 12.3 g/dL 10.7-15.4 [facility], [address] [place] [address] 40653 Hematocrit November 02, 2019 10:18am 38.2 % 37-47 [facility], [address] [place] [address] 65132 Hematocrit March 13, 2019 5:20pm 40.9 % 37-47 [facility], [address] [place] [address] 45445 Hematocrit February 15, 2019 11:00am 37.5 % 37-47 [facility], [address] [place] [address] 48518 Mean Corpuscular Volume November 02, 2019 10:18am 87.4 fl -[address] [place] [address] LABORATORY, [address] [place] [address] 85733 Mean Corpuscular Volume March 13, 2019 5:20pm 88.0 fl 80-[address] [place] [address] LABORATORY, [address] [place] [address] 58647 Mean Corpuscular Volume February 11:00am 88.[address] [facility], [address] [place] [address] 31329 Mean Corpuscular Hemoglobin October 072019 10:18am 29.5 pg 27-31 [facility], [address] [place] [address] 41702 Mean Corpuscular Hemoglobin March 13, 2019 5:20pm 29.2 pg 27-31 [facility], [address] [place] [address] 09087 Mean Corpuscular Hemoglobin February 15, 2019 11:00am 29.1 pg 27-31 [facility], [address] [place] [address] 67283 Mean Corpuscular Hemoglobin Concent November 02, 2019 10:18am 33.8 g/dl 3337 [facility], [address] [place] [address] 24713 Mean Corpuscular Hemoglobin Concent March 13, 2019 5:20pm 33.3 g/dl 37 [facility], [address] [place] [address] 06493 Mean Corpuscular Hemoglobin Concent February 15, 2019 11:00am 32.8 g/dl [address] [facility], [address] [place] [address] 95560 Red Cell Distribution Width October 072019 10:18am 13 % 11-15 [facility], [address] [place] [address] 34570 Red Cell Distribution Width March 13, 2019 5:20pm 13 % 11-15 [facility], [address] [place] [address] 55121 Red Cell Distribution Width February 15, 2019 11:00am 13 % 11-15 [facility], [address] [place] [address] 86596 Platelet Count November 02, 2019 10:18am 288 10e3/ul 130-472 [facility], [address] [place] [address] 67666 Platelet Count March 13, 2019 5:20pm 349 10e3/ul 130-472 [facility], [address] [place] [address] 01136 Platelet Count February 15, 2019 11:00am 283 10e3/ul 130-472 [facility], [address] [place] [address] Mean Platelet Volume November 01 10:18am 10.0 fl 9.1-13.1 [facility], [address] [place] [address] 10750 Mean Platelet Volume March 13 5:20pm 9.6 fl 9.1-13.1 [facility], [address] [place] [address] Mean Platelet Volume February 15, 2019 11:00am 9.9 fl 9.1-13.1 [facility], [address] [place] [address] 93456 Neutrophils (%) (Auto) November 02, 2019 10:18am 46.3 % [address] [place] [address] LABORATORY, [address] [place] [address] 84557 Neutrophils (%) (Auto) March 13, 2019 5:20pm 58.6 % [address] [place] [address] LABORATORY, [address] [place] [address] 56634 Neutrophils (%) (Auto) February 11:00am 53.9 % [address] [place] [address] LABORATORY, [address] [place] [address] 33361 Absolute Neutrophil November 01 0 10:18am 4.3 # 1.7-7.6 [facility], [address] [place] [address] 79645 Absolute Neutrophil March 13 0 5:20pm 5.6 # 1.7-7.6 [facility], [address] [place] [address] 33709 Absolute Neutrophil February 15 019 11:00am 3.9 # 1.7-7.6 [facility], [address] [place] [address] 39046 Lymphocytes (%) (Auto) November 02, 2019 10:18am 41.6 % 1446 [facility], [address] [place] [address] 93973 Lymphocytes (%) (Auto) March 13, 2019 5:20pm 30.9 % 1446 [facility], [address] [place] [address] 58144 Lymphocytes (%) (Auto) February 11:00am 35.9 % [address] [facility], [address] [place] [address] 31994 Lymphocytes # (Auto) November 01 10:18am 3.8 # 0.6-4.6 [facility], [address] [place] [address] 77210 Lymphocytes # (Auto) March 13 5:20pm 3.0 # 0.6-4.6 [facility], [address] [place] [address] 51897 Lymphocytes # (Auto) February 15, 2019 11:00am 2.6 # 0.6-4.6 [facility], [address] [place] [address] 39856 Monocytes (%) (Auto) November 01 10:18am 9.1 % 4-12 [facility], [address] [place] [address] 72419 Monocytes (%) (Auto) March 13 5:20pm 8.0 % 4-12 [facility], [address] [place] [address] 33151 Monocytes (%) (Auto) February 15, 2019 11:00am 7.8 % 4-12 [facility], [address] [place] [address] 36545 Monocytes # November 02, 2019 10:18am 0.8 # 0.2-1.2 [facility], [address] [place] [address] 17001 Monocytes # March 13, 2019 5:20pm 0.8 # 0.2-1.2 [facility], [address] [place] [address] 30441 Monocytes # February 15, 2019 11:00am 0.6 # 0.2-1.2 [facility], [address] [place] [address] 09601 Eosinophils (%) (Auto) November 02, 2019 10:18am 2.4 % 0-7 [facility], [address] [place] [address] 93215 Eosinophils (%) (Auto) March 13, 2019 5:20pm 2.0 % 0-7 [facility], [address] [place] [address] 67496 Eosinophils (%) (Auto) February 11:00am 2.0 % 0-7 [facility], [address] [place] [address] 88845 Absolute Eosinophils (CBC) November 012019 10:18am 0.2 # 0.0-0.5 [facility], [address] [place] [address] 80134 Absolute Eosinophils (CBC) March 132019 5:20pm 0.2 # 0.0-0.5 [facility], [address] [place] [address] 98917 Absolute Eosinophils (CBC) February 15, 2019 11:00am 0.1 # 0.0-0.5 [facility], [address] [place] [address] 61335 Basophils (%) (Auto) November 01 10:18am 0.4 % 0.4-1.3 [facility], [address] [place] [address] 34968 Basophils (%) (Auto) March 13 5:20pm 0.4 % 0.4-1.3 [facility], [address] [place] [address] 54275 Basophils (%) (Auto) February 15, 2019 11:00am 0.1 % 0.4-1.3 [facility], [address] [place] [address] 57430 Absolute Basophils (CBC) October 10:18am 0.0 # 0.0-0.2 [facility], [address] [place] [address] 47901 Absolute Basophils (CBC) March 5:20pm 0.0 # 0.0-0.2 [facility], [address] [place] [address] 22885 Absolute Basophils (CBC) February 152018 11:00am 0.0 # 0.0-0.2 [facility], [address] [place] [address] 04000 Immature Granulocyte % (Auto) November 02, 2019 10:18am 0.2 % 0-2 [facility], [address] [place] [address] 80600 Immature Granulocyte % (Auto) Maruar 2019 5:20pm 0.1 % 0-2 [facility], [address] [place] [address] 06543 Immature Granulocyte % (Auto) Dece 2018 11:00am 0.3 % 0-2 [facility], [address] [place] [address] 73861 Absolute Immature Granulocyte (auto November 02, 2019 10:18am 0.0 # 0-0.1 [facility], [address] [place] [address] 95876 Absolute Immature Granulocyte (auto March 13, 2019 5:20pm 0.0 # 0-0.1 [facility], [address] [place] [address] 07001 Absolute Immature Granulocyte (auto February 15, 2019 11:00am 0.0 # 0-0.1 [facility], [address] [place] [address] 06104 Add Manual Differential November 02, 2019 10:18am No [facility], [address] [place] [address] 81470 Add Manual Differential March 13, 2019 5:20pm No [facility], [address] [place] [address] 21301 Add Manual Differential February 11:00am No [facility], [address] [place] [address] 92345 Urine Color March 13, 2019 5:40pm Yellow [facility], [address] [place] [address] 49664 Urine Appearance March 13, 2019 5:40pm Clear CLEAR [facility], [address] [place] [address] 77493 Urine pH March 13, 2019 5:40pm 8.0 [facility], [address] [place] [address] 47925 Urine Specific [place] March 13, 2019 5:40pm 1.009 [facility], [address] [place] [address] 08962 Urine Leukocyte Esterase March 5:40pm Small NEGATIVE A Culture has been added to this specimen per established criteria [facility], [address] [place] [address] 72004 Urine Nitrate March 13, 2019 5:40pm Negative NEGATIVE [facility], [address] [place] [address] 56498 Urine Protein March 13, 2019 5:40pm Negative NEGATIVE [facility], [address] [place] [address] 67206 Urine Glucose March 13, 2019 5:40pm Negative NEGATIVE [facility], [address] [place] [address] 18102 Urine Ketones March 13, 2019 5:40pm Negative NEGATIVE [facility], [address] [place] [address] 36089 Urine Urobilinogen March 13, 2019 5:40p m 0.2 eu/dl [facility], [address] [place] [address] 68274 Urine Bilirubin March 13, 2019 5:40pm Negative NEGATIVE [facility], [address] [place] [address] 68406 Urine Blood March 13, 2019 5:40pm Negative NEGATIVE [facility], [address] [place] [address] 07962 Add Urine Microanalysis March 13, 2019 5:40pm Microscopic added [facility], [address] [place] [address] 13645 Urine WBC March 13, 2019 5:40pm 3-5 /hpf [facility], [address] [place] [address] 29714 Urine Squamous Epithelial Cells Asher rachel 2019 5:40pm Moderate /hpf [facility], [address] [place] [address] 06333 Urine Bacteria March 13, 2019 5:40pm Small amount NEGATIVE [facility], [address] [place] [address] Blood Urea Nitrogen November 01 0 10:18am 15 mg/dL 11-28 [facility], [address] [place] [address] Blood Urea Nitrogen March 13 0 5:20pm 10 mg/dL 11-28 [facility], [address] [place] [address] Sodium Level November 02, 2019 10:18am 141 mmol/L 132-146 [facility], [address] [place] [address] Sodium Level March 13, 2019 5:20pm 140 mmol/L 132-146 [facility], [address] [place] [address] 04759 Potassium Level November 02, 2019 10:18am 3.7 mmol/L 3.5-5.5 [facility], [address] [place] [address] 45991 Potassium Level March 13, 2019 5:20pm 3.8 mmol/L 3.5-5.5 [facility], [address] [place] [address] 27032 Chloride Level November 02, 2019 10:18am 108 mmol/l 99-109 [facility], [address] [place] [address] 56599 Chloride Level March 13, 2019 5:20pm 105 mmol/l 99-109 [facility], [address] [place] [address] 20771 Carbon Dioxide Level November 01 10:18am 27 mmol/l -31 [facility], [address] [place] [address] 40860 Carbon Dioxide Level March 13 5:20pm 30 mmol/l - [facility], [address] [place] [address] 31620 Anion Gap November 02, 2019 10:18am 10 mmol/l 8-16 [facility], [address] [place] [address] Anion Gap March 13, 2019 5:20pm 9 mmol/l 8-16 [facility], [address] [place] [address] 30905 Glucose Level November 02, 2019 10:18am 93 mg/dL 74-106 [facility], [address] [place] [address] Glucose Level March 13, 2019 5:20pm 86 mg/dL 74-106 [facility], [address] [place] [address] 38087 Creatinine November 02, 2019 10:18am 0.8 mg/dL 0.5-1.1 [facility], [address] [place] [address] Creatinine March 13, 2019 5:20pm 0.8 mg/dL 0.5-1.1 [facility], [address] [place] [address] 54888 Glomerular Filtration Rate Calc Augu st 2019 10:18am Greater than 60 ml/min ABOVE 60 [facility], [address] [place] [address] Glomerular Filtration Rate Calc Asher rachel 2019 5:20pm Greater than 60 ml/min ABOVE 60 [facility], [address] [place] [address] 90739 Alanine Aminotransferase (ALT/SGPT) November 02, 2019 10:18am 21 U/L 10-49 [facility], [address] [place] [address] Alanine Aminotransferase (ALT/SGPT) March 13, 2019 5:20pm 21 U/L 10-49 [facility], [address] [place] [address] 54392 Aspartate Amino Transf (AST/SGOT) Au mary kate 2019 10:18am 19 U/L 0-33 [facility], [address] [place] [address] 99709 Aspartate Amino Transf (AST/SGOT) Ja nuary 2019 5:20pm 14 U/L 0-33 [facility], [address] [place] [address] 58840 Alkaline Phosphatase November 01 10:18am 22 U/L 45-129 [facility], [address] [place] [address] Alkaline Phosphatase March 13 5:20pm 27 U/L 45-129 [facility], [address] [place] [address] 91962 Amylase Level March 13, 2019 5:20pm 59 U/L 30-118 [facility], [address] [place] [address] 65934 Lipase March 13, 2019 5:20pm 170 U/L 73-393 [facility], [address] [place] [address] 40963 Calcium Level November 02, 2019 10:18am 9.2 mg/dL 8.5-10.1 [facility], [address] [place] [address] Calcium Level March 13, 2019 5:20pm 9.1 mg/dL 8.5-10.1 [facility], [address] [place] [address] Total Bilirubin November 02, 2019 10:18am 0.5 mg/dL 0.3-1.2 [facility], [address] [place], [place] [id number] Total Bilirubin March 13, 2019 5:20pm 0.3 mg/dL 0.3-1.2 [facility], [address] [place] [address] 87252 Albumin November 02, 2019 10:18am 3.5 g/dL 3.2-4.8 [facility], [address] [place] [address] Albumin March 13, 2019 5:20pm 3.7 g/dL 3.2-4.8 [facility], [address] [place] [address] Serum Total Protein November 01 0 10:18am 6.8 g/dL 5.7-8.2 [facility], [address] [place] [address] Serum Total Protein March 13 0 5:20pm 8.1 g/dL 5.7-8.2 [facility], [address] [place] [address] Lactic Acid Level March 13, 2019 5:20pm 0.7 mmol/L 0.5-2.2 [facility], [address] [place] [address] Triglycerides Level November 01 0 10:18am 108 mg/dL 0-150 [facility], [address] [place] [address] 01793 Cholesterol Level November 02, 2019 10:18a m 207 mg/dL 120-200 [facility], [address] [place] [address] 09504 HDL Cholesterol November 02, 2019 10:18am 81 mg/dL HDL Less than 40 mg/dL: Major risk for CHDHDL Greater than 59 mg/dL: Low risk for CHD [facility], [address] [place] [address] LDL Cholesterol, Calculated October 072019 10:18am 105 mg/dL 0-100 [facility], [address] [place] [address] 14810 Thyroid Stimulating Hormone (TSH) Au mary kate 2019 10:18am 6.17 uIU/mL 0.35-5.50 [facility], [address] [place], [place] [phone] Thyroid Stimulating Hormone (TSH) Cherry 2018 11:00am 5.14 uIU/mL 0.35-5.50 [facility], [address] [place] [address] Serum Test, Qualitative Ja kylahary 2019 5:20pm Negative NEGATIVE [facility], [address] [place] [address] Thyrotropin Receptor Assay February 15, 2019 11:00am <1.10 IU/L Performed at: [facility] [id number] Director: Patt Hairston MD, Phone: [phone] [facility] , [address] [place] [id number] Insulin Level November 02, 2019 10:18am 3.6 uIU/mL Reference Range < or = 19.6 Risk: Optimal < or = 19.6 Moderate NA High >19.6 Adult cardiovascular event risk category cut points (optimal, moderate, high) are based on [place] population data from 02/2011.This insulin assay shows strong cross- reactivity forsome insulin analogs (lispro, aspart, and glargine)and much lower cross-reactivity with others (detemir,glulisine).THIS TEST WAS PERFORMED AT:[facility] [id number] MERATI,MD [employer] Hemoglobin A1c November 02, 2019 10:18am 5.5 [...] control. * High risk of developing long term acute care registered nurse complications such asretinopathy, nephropathy, neuropathy, cardiopathy, etc. Some danger of hypoglycemic reaction in Type I diabetics.Some glucose intolerant individuals and "Sub Clinical"diabetics may demonstrate HGBA1C levels in this area. [facility], [address] [place] [id number] Estimated Average Glucose (eAG) Augu 2019 10:18am 111 mg/dl An A1C of 7% - the goal of diabetic ther apy - is equivalentto an EAG of 154 mg/dl. [facility], [address] [place] [id number] Microbiology Results Procedure Source Result Collection Date/Time Result Date/Time Result Comment Performing Site Urine Culture Urine,voided March 13, 2019 5:40pm March 3:58pm [facility], [address] [place] [id number] Blood Culture Venous blood No growth. March 13, 2019 5:20pm March 5:20pm [facility], [address] [place] [address] [id number] Diagnostic Imaging Reports Report Dictated Date/Time Dictated By Status Radiology Report March 13, 2019 6:34pm Osito Medrano MD [place] [address] [facility] [place] [address] [phone] NAME SEX PT STATUS ACCOUNT NUMBER Yvonne Park [facility] ER [id number] ORDERING PHYSICIAN LOCATION MEDICAL RECORD NO. Scottie Dickson MD ER [id number] ATTENDING PHYSICIAN DATE OF DATE OF EXAM/TIME [...] 100cc REPORT SIGNATURE ON FILE 03/13/2019 (18:34 [place] Time ) Signed by: Osito Medrano M.D. Reported By Osito Medrano MD on 03/13/191833 Signed By Osito Medrano MD on 03/13/191833 Date Time CC: Darvin Watt MD; Osito Medrano MD Techn: JOSEU Trans Dt/Tm: 03/13/192003 Trans by: FRANK Prt Dt/Tm: : Total DLP = 920.00 mGy-cm : Total Radiation Dose = 13.8000 mSv Lifetime Dose: 13.8000 mS v Health Concerns Health Concerns may be documented in an alternate section. Advance Directives Advance Directive Response Recorded Date/Time Advanced Directive No De cember 2019 11:28am Does Patient have a DNR? No February 09, 2020 11:28am Healthcare Proxy No Dece mber 2019 11:28am Living Will No February 09, 2020 11:28am Chief Complaint and Reason for Visit Chief Complaint D72.829,R79.89 ABDOMINAL PAIN Anxiety Finger Pain/injury Encounter to Establish Care R63.5,E66.9,Z13.1,Z13.220 Test result Injection Skin complaints Headache Follow-up Reason for Visit Dizziness Panic disorder Panic disorder Schizoaffective disorder, depressive type TSH elevation Schizoaffective disorder, depressive type Encounter for immunization Encounters Encounter Location(s) Ar rival/Admit Date Discharge/Depart Date Provider(s) Registered Referred [facility] February 15, 2019 10:46am Darvin Watt MD Departed Emergency [facility] ER March 13, 2019 4:58pm March 13, 2019 10:50pm null Departed Physician/Provider Office Visit [facility] March 14, 2019 10:01am March 14, 2019 11:02am Chan Douglas MD Departed Physician/Provider Office Visit [facility] June 06, 2019 8:20am June 06, 2019 9:04am Chan Douglas MD Departed Physician/Provider Office Visit [facility] September 25, 2019 12:42pm September 25, 2019 1:47pm Scottie Aguillon DO Registered Referred [facility] November 02, 2019 9:54am Scottie Aguillon DO Departed Physician/Provider Office Visit [facility] November 17, 2019 12:31pm November 17, 2019 1:04pm Scottie Aguillon DO Departed Physician/Provider Office Visit [facility] December 14, 2019 8:38am December 14, 2019 8:53am Ramona judge NP Departed Physician/Provider Office Visit [facility] January 19, 2020 2:41pm January 19, 2020 3:45pm Ramona Kingston NP Departed Physician/Provider Office Visit [facility] February 15, 2020 1:40pm February 15, 2020 2:26pm Scottie marley DO Recent Diagnosis Onset Date Dizziness Panic disorder October 24, 2015 Panic disorder October 24, 2015 Schizoaffective disorder, depressive type June 30, 2017 TSH elevation Schizoaffective disorder, depressive type Encounter for immunization Assessments Diagnosis Onset Date Res olution Status Dizziness acute Panic disorder October 24, 2015 acute Panic disorder October 24, 2015 acute Schizoaffective disorder, depressive type June 30, 2017 acute TSH elevation acute Schizoaffective disorder, depressive type chronic Encounter for immunization acute Family History Relationship Condition A ge at Onset Recorded Date/Time Not Specified Migraine headache Unknown Not Specified Alzheimer's disease Unknown Not Specified Alcoholism Unknown Functional Status No Functional Status information available Goals Goals may be documented in an alternate section. Immunizations Immunization Event Date Not Given Reason Dose Number Hat Renovator Lot Number Vaccine Information Statement (VIS) Deta il influenza, injectable, quadriv Octob er 2018 influenza vaccine, inactivated Octob er 2019 [id number] Mental Status Observation Response Isidro e Recorded Impairments No impairments or barriers February 09, 2020 11:28am Medical Equipment No Medical Equipment Information available Insurance Providers Guarantor [employer]NE PARK Address [address] [address] Contact Info. Home Phone: Payer Policy Id Coverage Id Subscriber's Name Subscriber Id Effective Date Expiration Date [facility] [id number] [employer]NE [employer] [id number] [facility] [id number] YV[employer]NE PARK [id number] 2017 Self Pay Self N/A Plan of Treatment sebaceous cyst debrieded and pt educated on use of muporicin ointment. discussed dosing/administration/side effects. encouraged skin care with soap [...] and Panic Disorder followed by [facility] [employer] June. She has been gaining weight she says [...] 100 % in 1 week. 2 w ekwok recheck here. Future Tests Future scheduled test information is unavailable Pending Tests Pending diagnostic test information is unavailable Future Visits Future appointment information is unavailable Referrals to Other Providers Reason for Referral Referral Start Date Provider Provider Conta ct Information Provider Address Darvin Watt MD Work Phone: [phone] [phone] Future Procedures Future procedure information is unavailable Future Medications Future medication information is unavailable Patient Instructions Acute Urinary Retention in Women (ED) Abdominal Pain (ED) Social History Smoking Status Status Date of Observation Never smoker February 09, 2020 11:2 8am Observation Status Date of Observation Not February 09, 2020 Observation Status Observation Response Isidro e of Response Smoking Status Never smoker February 09, 2020 11:28am Alcohol Use No February 09, 2020 11:28am Substance Use No Decembe r 2019 11:28am When did patient quit smoking? NA February 09, 2020 11:28am Assigned Sex Female Vital Signs Vital Reading Result Ref erence Range Collection Date/Time Height 65 [in_i] March 13, 2019 5:03pm Weight 192.00 [lb_av] March 13, 2019 5:03pm Body Temperature 98.8 [degF] 97.6-99.5 March 13, 2019 10:00pm Heart Rate 84 /min 60-100 March 13, 2019 10:00pm Respiratory rate 16 /min 12-March 13, 2019 10:00pm Oxygen saturation by Pulse [...] 06, 2019 9:43am Respiratory rate 20 /min 12-June 06, 2019 9:43am Oxygen saturation by Pulse [...] 17, 2019 1:36pm Respiratory rate 18 /min -November 17, 2019 1:36pm Oxygen saturation by Pulse [...] 19, 2020 3:19pm Respiratory rate 18 /min -January 19, 2020 3:19pm Oxygen saturation by Pulse [...]
--- OUTSIDE RECORDS SUMMARY | 2020-03-20 21:03 | CCD | Continuity of Care Document ---
Author Author [facility] Organization [facility] Address [address] [place] [address] Phone Support Name Relationship Address Phone Darvin Watt PRS [address] [place] [address] Mayank Mcdowell PRS [address] [place] [address] Scottie Dickson PRS [address] [place] [address] Chan Douglas PRS [address] [place] [address] Scottie [place] [address] [place] [address] [place] [address] Allergies, Adverse Reactions, Alerts Allergen Type Severity [...] daily September 25, 2019 12:47pm Afluria Qd 2020-21(3yr up)(PF) (flu vac [id number] 36mos up(PF)) Discontinued 60 MCG IM 1 Time/Once 0.5 December 14, 2019 8:38am December 9:08am Brexpiprazole (Rexulti) 1 mg tablet Active 1 MG PO daily January 19, 2020 3:23pm Mupirocin Active 1 APPLIC TOP 2 Times Per Day January 19, 2020 3:44pm Quetiapine (Seroquel) 100 mg tablet Active 300 MG PO Once Per Day March 13, 2019 5: 30pm Desogestrel-Ethinyl Estradiol (Enskyce) 0.15-0.03 mg t ablet [...] MG PO 2 Times Per Day 90 March 17, 2016 10:19am August 11, 2016 [...] ovaries September 25, 2014 Active Dizziness Active Depression Active Panic disorder October 24, [...] 02, 2019 10:18a m 9.2 10e3/uL 4.45-10.71 [facility], [address] [place] [address] 21690 White Blood Count March 13, 2019 5:20pm 9.6 10e3/uL 4.45-10.71 [facility], [address] [place] [address] 35546 White Blood Count February 15 11:00am 7.2 10e3/uL 4.45-10.71 [facility], [address] [place] [address] 87355 Red Blood Count November 02, 2019 10:18am 4.37 10e6/uL 4.20-5.40 [facility], [address] [place] [address] 95712 Red Blood Count March 13, 2019 5:20pm 4.65 10e6/uL 4.20-5.40 [facility], [address] [place] [address] 00333 Red Blood Count February 15, 2019 11:00a m 4.23 10e6/uL 4.20-5.40 [facility], [address] [place] [address] 95284 Hemoglobin November 02, 2019 10:18am 12.9 g/dL 10.7-15.4 [facility], [address] [place] [address] 49051 Hemoglobin March 13, 2019 5:20pm 13.6 g/dL 10.7-15.4 [facility], [address] [place] [address] 12103 Hemoglobin February 15, 2019 11:00am 12.3 g/dL 10.7-15.4 [facility], [address] [place] [address] 26891 Hematocrit November 02, 2019 10:18am 38.2 % 37-47 [facility], [address] [place] [address] 08990 Hematocrit March 13, 2019 5:20pm 40.9 % 37-47 [facility], [address] [place] [address] 53718 Hematocrit February 15, 2019 11:00am 37.5 % 37-47 [facility], [address] [place] [address] 16549 Mean Corpuscular Volume November 02, 2019 10:18am 87.4 fl 80-96 [facility], [address] [place] [address] 61512 Mean Corpuscular Volume March 13, 2019 5:20pm 88.0 fl 80-96 [facility], [address] [place] [address] 17302 Mean Corpuscular Volume February 11:00am 88.7 fl 80-96 [facility], [address] [place] [address] 03522 Mean Corpuscular Hemoglobin October 072019 10:18am 29.5 pg 27-31 [facility], [address] [place] [address] 99742 Mean Corpuscular Hemoglobin March 13, 2019 5:20pm 29.2 pg 27-31 [facility], [address] [place] [address] 53036 Mean Corpuscular Hemoglobin February 15, 2019 11:00am 29.1 pg 27-31 [facility], [address] [place] [address] 17168 Mean Corpuscular Hemoglobin Concent November 02, 2019 10:18am 33.8 g/dl 33-37 [facility], [address] [place] [address] 42189 Mean Corpuscular Hemoglobin Concent March 13, 2019 5:20pm 33.3 g/dl [address] [facility], [address] [place] [address] 34695 Mean Corpuscular Hemoglobin Concent February 15, 2019 11:00am 32.8 g/dl 3337 [facility], [address] [place] [address] 15902 Red Cell Distribution Width October 072019 10:18am 13 % 11-15 [facility], [address] [place] [address] 20286 Red Cell Distribution Width March 13, 2019 5:20pm 13 % 11-15 [facility], [address] [place] [address] 46481 Red Cell Distribution Width February 15, 2019 11:00am 13 % 11-15 [facility], [address] [place] [address] 05167 Platelet Count November 02, 2019 10:18am 288 10e3/ul 130-472 [facility], [address] [place] [address] 00504 Platelet Count March 13, 2019 5:20pm 349 10e3/ul 130-472 [facility], [address] [place] [address] 97983 Platelet Count February 15, 2019 11:00am 283 10e3/ul 130-472 [facility], [address] [place] [address] 02162 Mean Platelet Volume November 01 10:18am 10.0 fl 9.1-13.1 [facility], [address] [place] [address] 13252 Mean Platelet Volume March 13 5:20pm 9.6 fl 9.1-13.1 [facility], [address] [place] [address] 99792 Mean Platelet Volume February 15, 2019 11:00am 9.9 fl 9.1-13.1 [facility], [address] [place] [address] 84650 Neutrophils (%) (Auto) November 02, 2019 10:18am 46.3 % [address] [place] [address] LABORATORY, [address] [place] [address] 24020 Neutrophils (%) (Auto) March 13, 2019 5:20pm 58.6 % [address] [facility], [address] [place] [address] 62546 Neutrophils (%) (Auto) February 11:00am 53.9 % [address] [place] [address] LABORATORY, [address] [place] [address] 57851 Absolute Neutrophil November 01 0 10:18am 4.3 # 1.7-7.6 [facility], [address] [place] [address] 74132 Absolute Neutrophil March 13 0 5:20pm 5.6 # 1.7-7.6 [facility], [address] [place] [address] 20295 Absolute Neutrophil February 15 019 11:00am 3.9 # 1.7-7.6 [facility], [address] [place] [address] 73324 Lymphocytes (%) (Auto) November 02, 2019 10:18am 41.6 % 14-46 [facility], [address] [place] [address] 13376 Lymphocytes (%) (Auto) March 13, 2019 5:20pm 30.9 % 14-46 [facility], [address] [place] [address] 07262 Lymphocytes (%) (Auto) February 11:00am 35.9 % 14-46 [facility], [address] [place] [address] 14041 Lymphocytes # (Auto) November 01 10:18am 3.8 # 0.6-4.6 [facility], [address] [place] [address] 24248 Lymphocytes # (Auto) March 13 5:20pm 3.0 # 0.6-4.6 [facility], [address] [place] [address] 55445 Lymphocytes # (Auto) February 15, 2019 11:00am 2.6 # 0.6-4.6 [facility], [address] [place] [address] 39464 Monocytes (%) (Auto) November 01 10:18am 9.1 % 4-12 [facility], [address] [place] [address] 03990 Monocytes (%) (Auto) March 13 5:20pm 8.0 % 4-12 [facility], [address] [place] [address] 54984 Monocytes (%) (Auto) February 15, 2019 11:00am 7.8 % 4-12 [facility], [address] [place] [address] 78732 Monocytes # November 02, 2019 10:18am 0.8 # 0.2-1.2 [facility], [address] [place] [address] 85129 Monocytes # March 13, 2019 5:20pm 0.8 # 0.2-1.2 [facility], [address] [place] [address] 98658 Monocytes # February 15, 2019 11:00am 0.6 # 0.2-1.2 [facility], [address] [place] [address] 53866 Eosinophils (%) (Auto) November 02, 2019 10:18am 2.4 % 0-7 [facility], [address] [place] [address] 71629 Eosinophils (%) (Auto) March 13, 2019 5:20pm 2.0 % 0-7 [facility], [address] [place] [address] 26407 Eosinophils (%) (Auto) February 11:00am 2.0 % 0-7 [facility], [address] [place] [address] 42594 Absolute Eosinophils (CBC) November 012019 10:18am 0.2 # 0.0-0.5 [facility], [address] [place] [address] 68322 Absolute Eosinophils (CBC) March 132019 5:20pm 0.2 # 0.0-0.5 [facility], [address] [place] [address] 15506 Absolute Eosinophils (CBC) February 15, 2019 11:00am 0.1 # 0.0-0.5 [facility], [address] [place] [address] 40719 Basophils (%) (Auto) November 01 10:18am 0.4 % 0.4-1.3 [facility], [address] [place] [address] 91132 Basophils (%) (Auto) March 13 5:20pm 0.4 % 0.4-1.3 [facility], [address] [place] [address] 61793 Basophils (%) (Auto) February 15, 2019 11:00am 0.1 % 0.4-1.3 [facility], [address] [place] [address] 46968 Absolute Basophils (CBC) October 10:18am 0.0 # 0.0-0.2 [facility], [address] [place] [address] 91673 Absolute Basophils (CBC) March 5:20pm 0.0 # 0.0-0.2 [facility], [address] [place] [address] 39124 Absolute Basophils (CBC) February 152018 11:00am 0.0 # 0.0-0.2 [facility], [address] [place] [address] 56077 Immature Granulocyte % (Auto) November 02, 2019 10:18am 0.2 % 0-2 [facility], [address] [place] [address] 40837 Immature Granulocyte % (Auto) Maruar 2019 5:20pm 0.1 % 0-2 [facility], [address] [place] [address] 64170 Immature Granulocyte % (Auto) Dece 2018 11:00am 0.3 % 0-2 [facility], [address] [place] [address] 41450 Absolute Immature Granulocyte (auto November 02, 2019 10:18am 0.0 # 0-0.1 [facility], [address] [place] [address] 45258 Absolute Immature Granulocyte (auto March 13, 2019 5:20pm 0.0 # 0-0.1 [facility], [address] [place] [address] 09732 Absolute Immature Granulocyte (auto February 15, 2019 11:00am 0.0 # 0-0.1 [facility], [address] [place] [address] 55634 Add Manual Differential November 02, 2019 10:18am No [facility], [address] [place] [address] 29775 Add Manual Differential March 13, 2019 5:20pm No [facility], [address] [place] [address] 34227 Add Manual Differential February 11:00am No [facility], [address] [place] [address] 82757 Urine Color March 13, 2019 5:40pm Yellow [facility], [address] [place] [address] 81340 Urine Appearance March 13, 2019 5:40pm Clear CLEAR [facility], [address] [place] [address] 03980 Urine pH March 13, 2019 5:40pm 8.0 [facility], [address] [place] [address] 65153 Urine Specific [place] March 13, 2019 5:40pm 1.009 [facility], [address] [place] [address] 80995 Urine Leukocyte Esterase March 5:40pm Small NEGATIVE A Culture has been added to this specimen per established criteria [facility], [address] [place] [address] 89419 Urine Nitrate March 13, 2019 5:40pm Negative NEGATIVE [facility], [address] [place] [address] 85202 Urine Protein March 13, 2019 5:40pm Negative NEGATIVE [facility], [address] [place] [address] 40599 Urine Glucose March 13, 2019 5:40pm Negative NEGATIVE [facility], [address] [place] [address] 62393 Urine Ketones March 13, 2019 5:40pm Negative NEGATIVE [facility], [address] [place] [address] 37256 Urine Urobilinogen March 13, 2019 5:40p m 0.2 eu/dl [facility], [address] [place] [address] 22083 Urine Bilirubin March 13, 2019 5:40pm Negative NEGATIVE [facility], [address] [place] [address] 83855 Urine Blood March 13, 2019 5:40pm Negative NEGATIVE [facility], [address] [place] [address] 56571 Add Urine Microanalysis March 13, 2019 5:40pm Microscopic added [facility], [address] [place] [address] 60388 Urine WBC March 13, 2019 5:40pm 3-5 /hpf [facility], [address] [place] [address] 77910 Urine Squamous Epithelial Cells Asher rachel 2019 5:40pm Moderate /hpf [facility], [address] [place] [address] 91271 Urine Bacteria March 13, 2019 5:40pm Small amount NEGATIVE [facility], [address] [place] [address] 28279 Blood Urea Nitrogen November 01 0 10:18am 15 mg/dL 11-28 [facility], [address] [place] [address] 68232 Blood Urea Nitrogen March 13 0 5:20pm 10 mg/dL 11-28 [facility], [address] [place] [address] 52422 Sodium Level November 02, 2019 10:18am 141 mmol/L 132-146 [facility], [address] [place] [address] 29684 Sodium Level March 13, 2019 5:20pm 140 mmol/L 132-146 [facility], [address] [place] [address] 63250 Potassium Level November 02, 2019 10:18am 3.7 mmol/L 3.5-5.5 [facility], [address] [place] [address] 13300 Potassium Level March 13, 2019 5:20pm 3.8 mmol/L 3.5-5.5 [facility], [address] [place] [address] 43861 Chloride Level November 02, 2019 10:18am 108 mmol/l 99-109 [facility], [address] [place] [address] 30980 Chloride Level March 13, 2019 5:20pm 105 mmol/l 99-109 [facility], [address] [place] [address] 86402 Carbon Dioxide Level November 01 20 10:18am 27 mmol/l -31 [facility], [address] [place] [address] 83998 Carbon Dioxide Level March 13 5:20pm 30 mmol/l -31 [facility], [address] [place] [address] 52302 Anion Gap November 02, 2019 10:18am 10 mmol/l 8-16 [facility], [address] [place] [address] 57142 Anion Gap March 13, 2019 5:20pm 9 mmol/l 8-16 [facility], [address] [place] [address] 90566 Glucose Level November 02, 2019 10:18am 93 mg/dL 74-106 [facility], [address] [place] [address] 64573 Glucose Level March 13, 2019 5:20pm 86 mg/dL 74-106 [facility], [address] [place] [address] 34403 Creatinine November 02, 2019 10:18am 0.8 mg/dL 0.5-1.1 [facility], [address] [place] [address] Creatinine March 13, 2019 5:20pm 0.8 mg/dL 0.5-1.1 [facility], [address] [place] [address] 96479 Glomerular Filtration Rate Calc Augu st 2019 10:18am Greater than 60 ml/min ABOVE 60 [facility], [address] [place] [address] Glomerular Filtration Rate Calc Asher rachel 2019 5:20pm Greater than 60 ml/min ABOVE 60 [facility], [address] [place] [address] 79614 Alanine Aminotransferase (ALT/SGPT) November 02, 2019 10:18am 21 U/L 10-49 [facility], [address] [place] [address] Alanine Aminotransferase (ALT/SGPT) March 13, 2019 5:20pm 21 U/L 10-49 [facility], [address] [place] [address] 80136 Aspartate Amino Transf (AST/SGOT) Au mary kate 2019 10:18am 19 U/L 0-33 [facility], [address] [place] [address] 69732 Aspartate Amino Transf (AST/SGOT) Ja nuary 2019 5:20pm 14 U/L 0-33 [facility], [address] [place] [address] 55836 Alkaline Phosphatase November 01 10:18am 22 U/L 45-129 [facility], [address] [place] [address] 77940 Alkaline Phosphatase March 13 5:20pm 27 U/L 45-129 [facility], [address] [place] [address] 85198 Amylase Level March 13, 2019 5:20pm 59 U/L 30-118 [facility], [address] [place] [address] 38633 Lipase March 13, 2019 5:20pm 170 U/L 73-393 [facility], [address] [place] [address] 21701 Calcium Level November 02, 2019 10:18am 9.2 mg/dL 8.5-10.1 [facility], [address] [place] [address] 29987 Calcium Level March 13, 2019 5:20pm 9.1 mg/dL 8.5-10.1 [facility], [address] [place] [address] 20686 Total Bilirubin November 02, 2019 10:18am 0.5 mg/dL 0.3-1.2 [facility], [address] [place], [place] [id number] Total Bilirubin March 13, 2019 5:20pm 0.3 mg/dL 0.3-1.2 [facility], [address] [place], [place] [id number] Albumin November 02, 2019 10:18am 3.5 g/dL 3.2-4.8 [facility], [address] [place], [place] [id number] Albumin March 13, 2019 5:20pm 3.7 g/dL 3.2-4.8 [facility], [address] [place], [place] [id number] Serum Total Protein November 01 0 10:18am 6.8 g/dL 5.7-8.2 [facility], [address] [place], [place] [id number] Serum Total Protein March 13 0 5:20pm 8.1 g/dL 5.7-8.2 [facility], [address] [place], [place] [id number] Lactic Acid Level March 13, 2019 5:20pm 0.7 mmol/L 0.5-2.2 [facility], [address] [place], [place] [id number] Triglycerides Level November 01 0 10:18am 108 mg/dL 0-150 [facility], [address] [place], [place] [id number] Cholesterol Level November 02, 2019 10:18a m 207 mg/dL 120-200 [facility], [address] [place], [place] [id number] HDL Cholesterol November 02, 2019 10:18am 81 mg/dL HDL Less than 40 mg/dL: Major risk for CHDHDL Greater than 59 mg/dL: Low risk for CHD [facility], [address] [place], [place] [id number] LDL Cholesterol, Calculated October 072019 10:18am 105 mg/dL 0-100 [facility], [address] [place], [place] [id number] Thyroid Stimulating Hormone (TSH) María hartmann 2019 10:18am 6.17 uIU/mL 0.35-5.50 [facility], [address] [place], [place] [id number] Thyroid Stimulating Hormone (TSH) Cherry 2018 11:00am 5.14 uIU/mL 0.35-5.50 [facility], [address] [place] [address] 18001 Serum Test, Qualitative Ja nuary 2019 5:20pm Negative NEGATIVE [facility], [address] [facility] [address] Thyrotropin Receptor Assay February 15, 2019 11:00am <1.10 IU/L Performed at: [facility] [id number] Director: Patt Hairston MD, Phone: [phone] [facility] , [address] [place] [id number] Insulin Level November 02, 2019 10:18am 3.6 uIU/mL Reference Range < or = 19.6 Risk: Optimal < or = 19.6 Moderate NA High >19.6 Adult cardiovascular event risk category cut points (optimal, moderate, high) are based on Feedback population data from 02/2011.This insulin assay shows strong cross- reactivity forsome insulin analogs (lispro, aspart, and glargine)and much lower cross-reactivity with others (detemir,glulisine).THIS TEST WAS PERFORMED AT:[facility] [id number] MERATI,MD [facility] Hemoglobin A1c November 02, 2019 [...] glucose control. * High risk of developing correction complications such asretinopathy, nephropathy, neuropathy, cardiopathy, etc. Some danger of hypoglycemic reaction in Type I diabetics.Some glucose intolerant individuals and "Sub Clinical"diabetics may demonstrate HGBA1C levels in this area. [facility], [address] [place] [id number] Estimated Average Glucose (eAG) Augu 2019 10:18am 111 mg/dl An A1C of 7% - the goal of diabetic ther apy - is equivalentto an EAG of 154 mg/dl. [facility], [address] [place] [id number] Microbiology Results Procedure Source Result Collection Date/Time Result Date/Time Result Comment Performing Site Urine Culture Urine,voided March 13, 2019 5:40pm March 3:58pm [facility], [address] [place] [id number] Blood Culture Venous blood No growth. March 13, 2019 5:20pm March 5:20pm [facility], [address] [place] [address] Diagnostic Imaging Reports Report Dictated Date/Time Dictated By Status Radiology Report March 13, 2019 6:34pm Osito Medrano MD completed [place] [address] [place] [address] [phone] NAME SEX PT STATUS ACCOUNT NUMBER [facility] [id number] ORDERING PHYSICIAN LOCATION MEDICAL RECORD NO. Scottie Dickson MD ER [id number] ATTENDING PHYSICIAN DATE OF DATE OF EXAM/TIME [...] 100cc REPORT SIGNATURE ON FILE 03/13/2019 (18:34 [place] Time ) Signed by: Osito Medrano M.D. Reported By Osito Medrano MD on 03/13/191833 Signed By Osito Medrano MD on 03/13/191833 Date Time CC: Darvin Watt MD; Osito Medrano MD Techn: [email or web address] Trans Dt/Tm: 03/13/192003 Trans by: DT Prt Dt/Tm: : Total DLP = 920.00 mGy-cm : Total Radiation Dose = 13.8000 mSv Lifetime Dose: 13.8000 mS v Health Concerns Health Concerns may be documented in an alternate section. Advance Directives Advance Directive Response Recorded Date/Time Advanced Directive No [facility] 2019 6:43am Does Patient have a DNR? No April 18, 2019 6:43am Healthcare Proxy No [facility] 2019 6:43am Living Will No April 18, 2019 6:43am Chief Complaint and Reason for Visit Chief Complaint D72.829,R79.89 ABDOMINAL PAIN Anxiety Finger Pain/injury Encounter to Establish Care R63.5,E66.9,Z13.1,Z13.220 Test result Injection Skin complaints Reason for Visit Dizziness Panic disorder Panic disorder Schizoaffective disorder, depressive type TSH elevation Schizoaffective disorder, depressive type Encounter for immunization Encounters Encounter Location(s) [place] [facility] Date Discharge/Depart Date Provider(s) Registered Referred -Laboratory February 15, 2019 10:46am Darvin Watt MD Departed Emergency -Emergency Room ER March 13, 2019 4:58pm March 13, 2019 10:50pm null Departed Physician/Provider Office Visit -[facility] March 14, 2019 10:01am March 14, 2019 11:02am Chan Douglas MD Departed Physician/Provider Office Visit -[facility] June 06, 2019 8:20am June 06, 2019 9:04am Chan Douglas MD Departed Physician/Provider Office Visit -[facility] September 25, 2019 12:42pm September 25, 2019 1:47pm Scottie Aguillon DO Registered Referred -Laboratory November 02, 2019 9:54am Scottie Aguillon DO Departed Physician/Provider Office Visit -[facility] November 17, 2019 12:31pm November 17, 2019 1:04pm Scottie Aguillon DO Departed Physician/Provider Office Visit -[facility] December 14, 2019 8:38am December 8:53am Ramona Kingston NP Departed Physician/Provider Office Visit -[facility] January 19, 2020 2:41pm January 19, 2020 3:45pm Ramona Kingston NP Recent Diagnosis Onset Date Dizziness Panic disorder [...] Event Date Not Given Reason Dose Number [employer] Lot Number Vaccine Information Statement (VIS) Deta il influenza, injectable, quadriv Octob er 2018 influenza vaccine, inactivated Octob er 2019 [id number] Mental Status No Mental Status Information Available Medical Equipment No Medical Equipment Information available Insurance Providers Guarantor YVONNE PARK Address [address] [place], [place] [id number] Contact Info. Home Phone: Payer Policy Id Coverage Id Subscriber's Name Subscriber Id Effective Date Expiration Date [facility] [id number] YVONNE PARK [id number] [facility] [id number] YVONNE PARK [id number] 2018 Self Pay Self N/A Plan of Treatment will immunize as per cdc protocol Schizoaffective [...] and Panic Disorder followed by Mental Health MISSILE TECHNICIAN June. She has been gaining weight she [...] 100 % in 1 week. 2 w [place] recheck here. Future Tests Future scheduled test information is unavailable Pending Tests Pending diagnostic test information is unavailable Future Visits Future appointment information is unavailable Referrals to Other Providers Reason for Referral Referral Start Date Provider Provider Conta ct Information Provider Address Darvin Watt MD Work Phone: [phone] [phone] Future Procedures Future procedure information is unavailable Future Medications Future medication information is unavailable Patient Instructions Acute Urinary Retention in Women (ED) Abdominal Pain (ED) Social History Smoking Status Status Date of Observation Never smoker September 25, 2019 1:49pm Observation Status Date of Observation Not April 18, 2019 Observation Status Observation Response Isidro e of Response Smoking Status Never smoker September 25, 2019 12:49pm Alcohol Use No April 18, 2019 6:43am Substance Use No 2019 6:43am When did patient quit smoking? NA April 18, 2019 6:43am Assigned Sex Female Vital Signs Vital Reading [...] 25, 2019 1:46pm Respiratory rate 18 /min -September 25, 2019 1:46pm Oxygen saturation by Pulse [...] 19, 2020 3:19pm Respiratory rate 18 /min 12-24 January 19, 2020 3:19pm Oxygen saturation by Pulse oximetry 99 % 95- 100 January 19, 2020 3:19pm BP Systolic 100 mm[Hg] January 19, 2020 3:19pm BP Diastolic 60 mm[Hg] January 19, 2020 3:19pm BMI (Body Mass Index) 31.2 kg/m2 January 19, 2020 3:19pm
[2020-03-21 00:16] LABS: HEMATOCRIT 41.8 % (36.0-47.0); HEMOGLOBIN 13.8 g/dl (12.0-15.5); MEAN CORPUSCULAR HEMOGLOBIN 29.2 pg (27.0-33.0); MEAN CORPUSCULAR VOLUME 88.6 fl (80.0-96.0); PLATELET COUNT, AUTOMATED 345 10^3/uL (150-450); RED BLOOD COUNT 4.72 10^6/uL (4.00-5.40); WHITE BLOOD COUNT 10.1 10^3/uL (4.0-10.0)
[2020-03-21 00:27] LABS: AMPHETAMINES LEVEL URINE NEGATIVE (NEGATIVE); BARBITURATES URINE NEGATIVE (NEGATIVE); BENZODIAZEPINES URINE NEGATIVE (NEGATIVE); CANNABINOIDS URINE NEGATIVE (NEGATIVE); COCAINE METABOLITE URINE NEGATIVE (NEGATIVE); METHADONE URINE NEGATIVE (NEGATIVE); OPIATES URINE NEGATIVE (NEGATIVE); PHENCYCLIDINE URINE NEGATIVE (NEGATIVE)
[2020-03-21 00:28] LABS: HCG, SERUM QUALITATIVE NEGATIVE (NEGATIVE)
[2020-03-21 00:45] LABS: ACETAMINOPHEN LEVEL < 2.0 UG/ML (10.0-30.0); ALBUMIN 3.8 GM/DL (3.2-5.2); ALT/SGPT 32 U/L (12-78); BILIRUBIN,DIRECT < 0.1 MG/DL (0.0-0.2); BILIRUBIN,TOTAL 0.3 MG/DL (0.2-1.0); BLOOD UREA NITROGEN 16 MG/DL (7-18); CALCIUM LEVEL 9.3 MG/DL (8.5-10.1); CARBON DIOXIDE LEVEL 26 MEQ/L (21-32); CHLORIDE LEVEL 107 MEQ/L (98-107); CREATININE FOR GFR 0.88 MG/DL (0.55-1.30); ETHYL ALCOHOL (ETHANOL) < 0.003 % (0.000-0.010); GLOMERULAR FILTRATION RATE > 60.0 (>58); GLUCOSE, FASTING 90 MG/DL (70-100); POTASSIUM SERUM 4.4 MEQ/L (3.5-5.1); SALICYLATE LEVEL < 1.7 MG/DL (5.0-30.0); SODIUM LEVEL 141 MEQ/L (136-145); TOTAL PROTEIN 7.3 GM/DL (6.4-8.2)
[2020-03-21 02:33] LABS: RSV AMPLIFICATION NEGATIVE (NEGATIVE)
--- NOTE | 2020-03-21 08:30 | ECGEPIP ---
[facility] - ED Test Date: 2020-03-21 Pat Name: CARA BRYAN Department: Room: - Gender: Female Administrative Appeals Tribunal Member: : 1980 Requested By: JOSELO Hudson Order Number: [id number] Reading MD: Radames Carvalho Measurements Intervals [place] Rate: 56 P: 61 [place]: 199 QRS: 86 QRSD: 98 T: 58 QT: 408 QTc: 396 Interpretive Statements SINUS BRADYCARDIA WITH MARKED SINUS ARRHYTHMIA POOR R WAVE PROGRESSION Electronically Signed on 03-21-2020 8:30:02 EST by Radames Carvalho
[2020-03-21 08:44] VITALS: BP 144/82
== END 2020-03-21 08:47 ==
LOC: M ED 20:47
DX: F23 Brief psychotic disorder (principal); R00.1 Bradycardia, unspecified; F25.9 Schizoaffective disorder, unspecified; F17.200 Nicotine dependence, unspecified, uncomplicated; Z79.899 Other long term (current) drug therapy; Z88.2 Allergy status to sulfonamides; Z91.018 Allergy to other foods
CPT/HCPCS: 80048; 80076; 80307; 84443; 84703; 85027; 87631; 93005; 99284; G0480

== ENCOUNTER → 2023-08-23 | Outpatient (REF) | payer MEDICAID, MEDICARE ==
[~2023-08-23] MED LIST changes: +QUET1TAB17 PO; -QUET1TAB7 PO; +SUMA25TA3; +VRAY3CAP
[2023-08-23 21:06] LABS: APPEARANCE, URINE CLEAR (CLEAR); BACTERIA, URINE AUTO NEGATIVE (NEGATIVE); BILIRUBIN, URINE AUTO NEGATIVE (NEGATIVE); BLOOD, URINE BLOOD NEGATIVE (NEGATIVE); COLOR, URINE YELLOW (YELLOW); GLUCOSE, URINE (UA) AUTO NEGATIVE (NEGATIVE); KETONE, URINE AUTO NEGATIVE (NEGATIVE); LEUKOCYTE ESTERASE, URINE AUTO TRACE (NEGATIVE); MUCUS, URINE SMALL (NEGATIVE); NITRITE, URINE AUTO NEGATIVE (NEGATIVE); PROTEIN, URINE AUTO NEGATIVE (NEGATIVE); RBC, URINE AUTO 1 /HPF (0-3); SPECIFIC GRAVITY URINE AUTO 1.018 (1.002-1.035); SQUAMOUS EPITHELIAL CELL UR AU 2 /HPF (0-6); UROBILINOGEN, URINE AUTO 0.2 mg/dL (0.0-2.0); WBC, URINE AUTO 4 /HPF (0-3)
== END ==
LOC: M LAB REF 20:53
PROVIDERS: ATTEND Physician Assistant Medical
DX: N39.0 Urinary tract infection, site not specified (principal)